=== PATIENT | male | born 1945 | race Caucasian/White ===

== ENCOUNTER 2017-09-16 15:04 | Emergency (ER) | payer MEDICARE, BC, OTHER ==
[2017-09-16 15:12] VITALS: BP 120/54
[2017-09-16] MEDS ORDERED: DOXYcycline CAP(*) 100 MG PO ONE (15:59)
--- NOTE | 2017-09-16 15:59 | UC ---
Skin Complaint HPI - HPI Summary HPI Summary: 72 y/o male presents to the urgent care c/o a tick bite on his Rt forearm about 2 days ago. He was out hunting deers and was carrying the deer when he noticed the tick in his forearm. Pt removed it. He now has redness. His told him to come to the clinic for treatment. Pt denies fever, joint pain, KENNEDY, chest pain , N/v/d, abdominal pain. - History of Current Complaint Chief Complaint: UCSkin Time Seen by Provider: 09/16/17 15:41 Stated Complaint: TICK BITE Hx Obtained From: Patient Onset/Duration: Sudden Onset, Lasting Days - 2 days, Still Present - the red rash, tick is gone Skin Exposure Onset/Duration: Days Ago - 2 days Timing: Constant Onset Severity: Mild Current Severity: Mild Pain Intensity: 0 Location: Discrete - Rt forearm Character: Redness Aggravating Factor(s): Touch Alleviating Factor(s): Nothing Associated Signs & Symptoms: Positive: Rash. Negative: Fever, Chills, Chest Pain Related History: Possible Reaction to: Insect - Allergy/Home Medications Allergies/Adverse Reactions: Allergies Allergy/AdvReac Type Severity Reaction Status Date / Time No Known Allergies Allergy Verified 09/16/17 15:12 Review of Systems Constitutional: Negative Skin: Other - RT forearm tick bite Eyes: Negative ENT: Negative Respiratory: Negative Cardiovascular: Negative Gastrointestinal: Negative Genitourinary: Negative Motor: Negative Neurovascular: Negative Musculoskeletal: Negative Neurological: Negative Psychological: Negative Is Patient Immunocompromised?: No All Other Systems Reviewed And Are Negative: Yes PMH/Surg Hx/FS Hx/Imm Hx Previously Healthy: Yes Endocrine History: Diabetes, Dyslipidemia Cardiovascular History: Cardiac Disease, Hypertension, Myocardial Infarction Other History Of: Anticoagulant Therapy - ASA Negative For: HIV, Hepatitis B, Hepatitis C - Surgical History Surgical History: Yes Surgery Procedure, Year, and Place: BASAL CELL ON NOSE 2010, hydrocele. CATARACTS [facility] [place]. RIGHT SHOULDER 2009 [facility] [place]. OPEN LAILA 84 [facility] [place]. APPY 2010 [facility] [place]. QUINTUPLE BYPASS FEBRUARY 2016, [facility]. SEVERAL BASAL CELL REMOVALS [facility]. VASECTOMY - Family History Known Family History: Positive: Cardiac Disease, Hypertension - Social History Occupation: Retired Lives: With Family Alcohol Use: Occasionally Alcohol Amount: 1/WEEK Substance Use Type: None Smoking Status (MU): Former Smoker Type: Cigarettes Amount Used/How Often: 1 PPD X 28 YEARS Length of Time of Smoking/Using Tobacco: 25+ YEARS Have You Smoked in the Last Year: No When Did the Patient Quit Smoking/Using Tobacco: 1983 - Immunization History Most Recent Influenza Vaccination: 2015 Most Recent Tetanus Shot: within ten years Most Recent Pneumonia Vaccination: 2013 Physical Exam Triage Information Reviewed: Yes Vital Signs: Initial Vital Signs Temp 96.4 F 09/16/17 15:08 Pulse 66 09/16/17 15:08 Resp 12 09/16/17 15:08 BP 120/54 09/16/17 15:08 Pulse Ox 99 09/16/17 15:08 - Additional Comments Vital Signs Reviewed: Yes General: well developed, well nourished male sitting in the examining table w/o any apparent distress. Eyes: Positive: Conjunctiva Clear - PERRLA, EOMI ENT: Positive: Normal ENT inspection, Hearing grossly normal, Pharynx normal, TMs normal Neck: Positive: Supple, Nontender, No Lymphadenopathy Respiratory: Positive: Chest nontender, Lungs clear, Normal breath sounds Cardiovascular: Positive: RRR, No Murmur, Pulses Normal Abdomen Description: Positive: Nontender, No Organomegaly, Soft. Negative: CVA Tenderness (R), CVA Tenderness (L) Bowel Sounds: Positive: Present Musculoskeletal: Positive: Strength Intact, ROM Intact, No Edema Neurological Exam: Normal Psychological Exam: Normal Skin: Positive: rashes - distal lateral aspect of RT forearm with tick bite with surrounding erythema, non tender to palpation. tick no longer present, no swelling or drainage observed. Course/Dx - Course Course Of Treatment: 72 y/o male presents to the urgent care c/o a tick bite on his Rt forearm about 2 days ago. He was out hunting deers and was carrying the deer when he noticed the tick in his forearm. Pt removed it. He now has redness. His told him to come to the clinic for treatment. Pt denies fever , joint pain, KENNEDY, chest pain, N/v/d, abdominal pain. Hx obtained. Pt with a discrete tick bite and mild erythema on examination. Antibiotic prophylaxis with Doxycycline given to the patient to prevent lyme Disease.. Pt tolerated well medication. Pt advised to observe the area for the development or Erythema Migrans for up to 30 days following exposure. Advised if he develops fever or erythema Migrans to return to the clinic or PCP for further treatment .Pt understood and agreed with plan of care. - Differential Diagnoses - Skin Complaint Differential Diagnoses: Cellulitis, Contact Dermatitis, Local Allergic Reaction , Tick Born Illness, Urticaria, Other - insect bite, bee sting - Diagnoses Provider Diagnoses: 1- Tick bite on Rt forearm Discharge - Discharge Plan Condition: Stable Disposition: HOME Patient Education Materials: Tick Bite (ED) Referrals: Bryant Borrego MD [Primary Care Provider] - If Needed Additional Instructions: 1- Please observe the area for the development or Erythema Migrans for upto 30 days following exposure. Components of the tick saliva can cause transient erythema that should not be confused with Erythema Migrans. If you developed the bull's eye rash or fever, joint pain, headache please f/u with your PCP of return to the urgent care for further treatment and Lyme serology 2-Antibiotic prophylaxis with Doxycycline was given to you today to prevent lyme Disease.
[2017-09-16] MEDS ORDERED: DOXYcycline CAP(*) 100 MG ONE (16:02)
== END 2017-09-16 16:08 | disposition home or self-care (01) ==
LOC: UCEAST 15:04
DX: S50.861A Insect bite (nonvenomous) of right forearm, initial encounter (principal); W57.XXXA Bitten or stung by nonvenomous insect and other nonvenomous arthropods, initial encounter; Y92.9 Unspecified place or not applicable
CPT/HCPCS: 99212; A9270-GY; G0463

== ENCOUNTER 2017-11-18 13:02 | Emergency (ER) | payer MEDICARE, BC, OTHER ==
[2017-11-18 14:37] VITALS: BP 112/64
--- NOTE | 2017-11-18 14:51 | UC ---
Back Pain HPI - HPI Summary HPI Summary: Pt presents with right sided back pain. He tells me that a few years ago he was doing housework and twisted toward his right - had immediate pain and saw his PCP. He was placed on a steroid and something else that he cannot remember - his discomfort improved within a few days. About a week ago he was helping his daughter work on the house - doing lots of lifting and bending. Woke up the next day with pain in this same spot. He has been taking flexeril at bedtime with little relief. Denies specific injury, fever, chills, SOB, chest pain, radiation of pain, weakness, numbness, or tingling. No bowel or bladder dysfunction. - History of Current Complaint Chief Complaint: UCBackPain Stated Complaint: BACK PAIN Time Seen by Provider: 11/18/17 14:50 Hx Obtained From: Patient Onset/Duration: Gradual Onset Timing: Constant Severity Initially: Moderate Severity Currently: Mild Pain Intensity: 1 Pain Scale Used: 0-10 Numeric Character: Spasmodic, Stiffness Aggravating Factor(s): Movement, Lifting Alleviating Factor(s): Rest - Allergies/Home Medications Allergies/Adverse Reactions: Allergies Allergy/AdvReac Type Severity Reaction Status Date / Time No Known Allergies Allergy Verified 11/18/17 14:24 Home Medications: Home Medications Furosemide TAB* [Lasix TAB*] 20 mg PO EVERY OTHER DAY 11/18/17 [History Confirmed 11/18/17] PMH/Surg Hx/FS Hx/Imm Hx Endocrine History: Diabetes Cardiovascular History: Cardiac Disease, Hypertension, Atrial Fibrillation GI/ History: Gastroesophageal Reflux Other History Of: Anticoagulant Therapy - ASA Negative For: HIV, Hepatitis B, Hepatitis C - Surgical History Surgical History: Yes Surgery Procedure, Year, and Place: BASAL CELL ON NOSE 2010, hydrocele. CATARACTS [facility] [place]. RIGHT SHOULDER 2009 [facility] [place]. OPEN [address]ILA [address] [facility] [place]. APPY 2010 [facility] [place]. QUINTUPLE BYPASS FEBRUARY 2016, [facility]. SEVERAL BASAL CELL REMOVALS [facility] [place]. VASECTOMY - Family History Known Family History: Positive: None, Cardiac Disease, Hypertension - Social History Occupation: Retired Lives: With Family Alcohol Use: Occasionally Alcohol Amount: 1/WEEK Substance Use Type: None Smoking Status (MU): Former Smoker Type: Cigarettes Amount Used/How Often: 1 PPD X 28 YEARS Length of Time of Smoking/Using Tobacco: 25+ YEARS Have You Smoked in the Last Year: No When Did the Patient Quit Smoking/Using Tobacco: 1983 - Immunization History Most Recent Influenza Vaccination: 2016 Most Recent Tetanus Shot: within ten years Most Recent Pneumonia Vaccination: 2014 Review of Systems Constitutional: Negative Skin: Negative Respiratory: Negative Cardiovascular: Negative Gastrointestinal: Negative Genitourinary: Negative Neurovascular: Negative Musculoskeletal: Other: - Back pain Neurological: Negative Psychological: Negative All Other Systems Reviewed And Are Negative: Yes Physical Exam Triage Information Reviewed: Yes Appearance: Well-Appearing, No Pain Distress, Well-Nourished Vital Signs: Initial Vital Signs Temp 97.4 F 11/18/17 14:30 Pulse 55 11/18/17 14:30 Resp 16 11/18/17 14:30 BP 112/64 11/18/17 14:30 Pulse Ox 98 11/18/17 14:30 Vital Signs Reviewed: Yes Neck: Positive: Supple, Nontender, No Lymphadenopathy Respiratory: Positive: Lungs clear, Normal breath sounds, No respiratory distress, No accessory muscle use Cardiovascular: Positive: Pulses Normal, Brisk Capillary Refill Musculoskeletal: Positive: Strength Intact - B/L LEs including dorsiflexion and plantar flexion, ROM Intact - B/L LEs, No Edema, Other: - TTP over right lumbar paraspinal muscles. Negative SLR. Negative FARNAZ. Neurological: Positive: Alert, Other: - Sensations intact L3-S1 b/l LEs Psychological: Positive: Age Appropriate Behavior Skin: Negative: rashes Back Pain Course/Dx - Course Course Of Treatment: Muscle spasm. Treated options are limited given his medications and other comorbidities. He tells me that he took a steroid in the past with good relief, so we can try this again along with a lidoderm patch prn. - Differential Dx/Diagnosis Provider Diagnoses: Back muscle spasm Discharge - Discharge Plan Condition: Stable Disposition: HOME Prescriptions: Dexamethasone TAB* [Decadron TAB*] 4 mg PO DAILY #5 tab Lidocaine PATCH 5%* [Lidoderm 5% Patch*] 1 patch TRANSDERM DAILY #7 patch Patient Education Materials: Muscle Spasm (ED) Referrals: Bryant Borrego MD [Primary Care Provider] - Additional Instructions: If you develop a fever, shortness of breath, chest pain, new or worsening symptoms - please call your PCP or go to the ED. 1) May take tylenol or your at home flexeril as needed for pain
== END 2017-11-18 15:15 | disposition home or self-care (01) ==
LOC: UCEAST 13:02
DX: M62.830 Muscle spasm of back (principal); E11.9 Type 2 diabetes mellitus without complications; I48.91 Unspecified atrial fibrillation; Z79.82 Long term (current) use of aspirin; I11.9 Hypertensive heart disease without heart failure; K21.9 Gastro-esophageal reflux disease without esophagitis; Z90.49 Acquired absence of other specified parts of digestive tract; Z95.5 Presence of coronary angioplasty implant and graft; Z98.49 Cataract extraction status, unspecified eye; Z85.828 Personal history of other malignant neoplasm of skin; Z87.891 Personal history of nicotine dependence
CPT/HCPCS: 99212; G0463

== ENCOUNTER 2017-12-13 10:15 | Emergency (ER) | payer MEDICARE, BC, OTHER ==
[2017-12-13 10:35] VITALS: BP 112/70
--- NOTE | 2017-12-13 10:52 | UC ---
Shoulder Pain HPI - HPI Summary HPI Summary: TRIPPED ON STONE SIDEWALK LAST NIGHT AROUND 10:30PM. LANDED ON RIGHT SHOULDER AND RIGHT KNEE. PT NOT CONCERNED ABOUT KNEE BUT HAS SEVERE RIGHT SHOULDER PAIN AND DECREASED ROM. TOOK TYLENOL LAST NIGHT WHICH HELPED A BIT. IS WEARING A SLING WHICH HELPS. PT ON COUMADIN FOR HEART DISEASE. STATES INR CHECK YESTERDAY WAS HIGH - 4.0. DENIES ANY UNUSUAL BLEEDING. - History of Current Complaint Chief Complaint: UCUpperExtremity Stated Complaint: shoulder injury Time Seen by Provider: 12/13/17 10:47 Hx Obtained From: Patient Onset/Duration: Sudden Onset, Lasting Hours, Still Present Timing: Constant Severity Initially: Moderate Severity Currently: Moderate Location Of Pain: Is Discrete @ - RIGHT SHOULDER Pain Intensity: 10 - WITH MOVEMENT Pain Scale Used: 0-10 Numeric Character: Sharp, Aching Aggravating Factor(s): Movement Alleviating Factor(s): Rest Associated Signs And Symptoms: Positive: Negative Related History: Dominant Hand Right - Allergies/Home Medications Allergies/Adverse Reactions: Allergies Allergy/AdvReac Type Severity Reaction Status Date / Time No Known Allergies Allergy Verified 12/13/17 10:27 PMH/Surg Hx/FS Hx/Imm Hx - Additional Past Medical History Additional PMH: ALLERGIES Endocrine History: Diabetes Cardiovascular History: Cardiac Disease, Hypertension Other Cancer History: SKIN CANCER Other History Of: Anticoagulant Therapy - ASA Negative For: HIV, Hepatitis B, Hepatitis C - Surgical History Surgical History: Yes Surgery Procedure, Year, and Place: BASAL CELL ON NOSE 2010, hydrocele. CATARACTS [facility]. RIGHT SHOULDER 2009 [facility] [place]. OPEN LAILA [address] [facility] [place]. APPY 2010 [facility]. QUINTUPLE BYPASS FEBRUARY 2016, [facility]. SEVERAL BASAL CELL REMOVALS [facility]. VASECTOMY - Family History Known Family History: Positive: Cardiac Disease, Hypertension - Social History Alcohol Use: Occasionally Alcohol Amount: 1/WEEK Substance Use Type: None Smoking Status (MU): Former Smoker Type: Cigarettes Amount Used/How Often: 1 PPD X 28 YEARS Length of Time of Smoking/Using Tobacco: 25+ YEARS Have You Smoked in the Last Year: No When Did the Patient Quit Smoking/Using Tobacco: 1983 - Immunization History Most Recent Influenza Vaccination: 2015 Most Recent Tetanus Shot: within ten years Most Recent Pneumonia Vaccination: 2013 Review of Systems Constitutional: Negative Skin: Negative Respiratory: Negative Cardiovascular: Negative Gastrointestinal: Negative Musculoskeletal: Arthralgia, Decreased ROM All Other Systems Reviewed And Are Negative: Yes Physical Exam Triage Information Reviewed: Yes Appearance: Well-Appearing, No Pain Distress, Well-Nourished Vital Signs: Initial Vital Signs Temp 96.9 F 12/13/17 10:28 Pulse 62 12/13/17 10:28 Resp 16 12/13/17 10:28 BP 112/70 12/13/17 10:28 Pulse Ox 98 12/13/17 10:28 Vital Signs Reviewed: Yes Eyes: Positive: Conjunctiva Clear ENT: Positive: Hearing grossly normal Neck: Positive: Supple Respiratory: Positive: No respiratory distress, No accessory muscle use Cardiovascular: Positive: Pulses Normal Abdomen Description: Positive: Soft Musculoskeletal: Positive: No Edema, ROM Limited @ - RIGHT SHOULDER, Other: - TTP RIGHT RIGHT AC JOINT. POSITIVE CROSS ARM TEST. Neurological: Positive: Alert Psychological: Positive: Age Appropriate Behavior Skin: Negative: rashes Diagnostics - Radiology AC JOINT XRAYS Xray Interpretation: Positive (See Comments) - 1. BILATERAL AC JOINT OSTEOARTHRITIS. 2. QUESTIONABLE NONDISPLACED FRACTURE OF THE LATERAL RIGHT CLAVICLE, GIVEN THE HISTORY OF TRAUMA. RECOMMEND CORRELATION WITH SITE OF PAIN. Radiology Interpretation Completed By: Radiologist Shoulder Course/Dx - Differential Dx/Diagnosis Provider Diagnoses: RIGHT CLAVICLE FRACTURE - NON DISPLACED Discharge - Discharge Plan Condition: Stable Disposition: HOME Prescriptions: HYDROcodone/ACETAMIN 5-325 MG* [[place] 5-325 TAB*] 1 tab PO Q6H PRN #20 tab MDD 4 PRN Reason: Pain Patient Education Materials: Clavicle Fracture (ED) Referrals: Bryant Borrego MD [Primary Care Provider] - If Needed Cirilo Becerra MD [Medical Doctor] - 1 Week Additional Instructions: XRAY SHOWED QUESTIONABLE NONDISPLACED FRACTURE OF THE LATERAL RIGHT CLAVICLE. WEAR THE SLING UNTIL SEEN BY ORTHO. HYDROCODONE/APAP FOR PAIN. FOLLOW-UP WITH ORTHO NEXT WEEK. BE VIGILANT FOR ANY SIGNS OF BLEEDING GIVEN YOUR SUPRATHERAPEUTIC INR. GO TO THE ER WITHOUT FAIL IF YOU DEVELOP ANY WORSENING SWELLING, BRUISING, PAIN, NUMBNESS, DIZZINESS, SHORTNESS OF BREATH OR ANY OTHER CONCERNING SYMPTOMS.
--- NOTE | 2017-12-13 11:26 | RAD ---
HISTORY: Right shoulder pain, trauma COMPARISONS: Chest x-ray dated December 12, 2017 VIEWS: 5, frontal views of the acromioclavicular joints bilaterally with and without weightbearing FINDINGS: BONE DENSITY: Normal. BONES: There is post surgical change to the right proximal humerus . There is questionable linear lucency of the distal (lateral) views right clavicle. JOINTS: There is moderate osteoarthritis of the AC joints bilaterally. There is no diastases of the a.c. or coracoclavicular intervals with a without weightbearing. . ALIGNMENT: There is no dislocation. SOFT TISSUES: Unremarkable. OTHER FINDINGS: None. IMPRESSION: 1. BILATERAL AC JOINT OSTEOARTHRITIS. 2. QUESTIONABLE NONDISPLACED FRACTURE OF THE LATERAL RIGHT CLAVICLE, GIVEN THE HISTORY OF TRAUMA. RECOMMEND CORRELATION WITH SITE OF PAIN.
== END 2017-12-13 11:58 | disposition home or self-care (01) ==
LOC: UCEAST 10:15
DX: S42.034A Nondisplaced fracture of lateral end of right clavicle, initial encounter for closed fracture (principal); W01.0XXA Fall on same level from slipping, tripping and stumbling without subsequent striking against object, initial encounter; Y93.01 Activity, walking, marching and hiking; Y92.480 Sidewalk as the place of occurrence of the external cause; M19.012 Primary osteoarthritis, left shoulder; M19.011 Primary osteoarthritis, right shoulder; E11.9 Type 2 diabetes mellitus without complications; Z79.84 Long term (current) use of oral hypoglycemic drugs; I11.9 Hypertensive heart disease without heart failure; Z79.82 Long term (current) use of aspirin; Z85.828 Personal history of other malignant neoplasm of skin; Z95.1 Presence of aortocoronary bypass graft; Z87.891 Personal history of nicotine dependence
CPT/HCPCS: 73050; 99212; G0463

== ENCOUNTER 2018-05-28 12:14 | Emergency (ER) | payer MEDICARE, BC, OTHER ==
[2018-05-28 12:57] VITALS: BP 131/78
--- NOTE | 2018-05-28 13:07 | UC ---
Abdominal Pain Male HPI - HPI Summary HPI Summary: no bowel movement for 2 and 1/2 weeks---patient is vomiting abdomen is distended - History of Current Complaint Chief Complaint: UCAbdominalPain Stated Complaint: ABDOMINAL COMPLAINT Time Seen by Provider: 05/28/18 13:02 Hx Obtained From: Patient Onset/Duration: Sudden Onset Timing: Constant Pain Intensity: 7 Pain Scale Used: 0-10 Numeric Location: Diffuse Radiates: No Character: Colicy, Cramping Aggravating Factor(s): Nothing Alleviating Factor(s): Nothing Associated Signs And Symptoms: Positive: Decreased Appetite, Nausea, Vomiting - Allergies/Home Medications Allergies/Adverse Reactions: Allergies Allergy/AdvReac Type Severity Reaction Status Date / Time No Known Allergies Allergy Verified 05/28/18 12:57 PMH/Surg Hx/FS Hx/Imm Hx Previously Healthy: No Endocrine History: Diabetes, Dyslipidemia Cardiovascular History: Cardiac Disease, Hypertension Other History Of: Anticoagulant Therapy - ASA Negative For: HIV, Hepatitis B, Hepatitis C - Surgical History Surgical History: Yes Surgery Procedure, Year, and Place: BASAL CELL ON NOSE 2010, hydrocele. CATARACTS [facility] [place]. RIGHT SHOULDER 2009 [facility] [place]. OPEN [address] [facility]. APPY 2010 [facility]. QUINTUPLE BYPASS FEBRUARY 2016, [facility]. SEVERAL BASAL CELL REMOVALS [facility]. VASECTOMY - Family History Known Family History: Positive: Cardiac Disease, Hypertension - Social History Occupation: Retired Lives: With Family Alcohol Use: Occasionally Alcohol Amount: 1/WEEK Substance Use Type: None Smoking Status (MU): Former Smoker Type: Cigarettes Amount Used/How Often: 1 PPD X 28 YEARS Length of Time of Smoking/Using Tobacco: 25+ YEARS Have You Smoked in the Last Year: No When Did the Patient Quit Smoking/Using Tobacco: 1983 - Immunization History Most Recent Influenza Vaccination: 2016 Most Recent Tetanus Shot: within ten years Most Recent Pneumonia Vaccination: 2014 Review of Systems Constitutional: Negative Skin: Negative Eyes: Negative ENT: Negative Respiratory: Negative Cardiovascular: Negative Gastrointestinal: Negative, Abdominal Pain, Vomiting Genitourinary: Negative Motor: Negative Neurovascular: Negative Musculoskeletal: Negative Neurological: Negative Psychological: Negative Is Patient Immunocompromised?: No All Other Systems Reviewed And Are Negative: Yes Physical Exam Triage Information Reviewed: Yes Appearance: Well-Appearing, No Pain Distress, Well-Nourished Vital Signs: Initial Vital Signs Temp 97.6 F 05/28/18 12:50 Pulse 63 05/28/18 12:50 Resp 18 05/28/18 12:50 BP 131/78 05/28/18 12:50 Pulse Ox 99 05/28/18 12:50 Vital Signs Reviewed: Yes Eye Exam: Normal Eyes: Positive: Conjunctiva Clear ENT Exam: Normal ENT: Positive: Normal ENT inspection, Hearing grossly normal. Negative: Trismus , Muffled voice, Hoarse voice Dental Exam: Normal Neck exam: Normal Neck: Positive: Supple, Nontender Respiratory Exam: Normal Respiratory: Positive: Chest non-tender, Lungs clear, Normal breath sounds, No respiratory distress, No accessory muscle use Cardiovascular Exam: Normal Cardiovascular: Positive: RRR, No Murmur, Pulses Normal, Brisk Capillary Refill Abdominal Exam: Normal Abdomen Description: Positive: Distended. Negative: CVA Tenderness (R), CVA Tenderness (L), Guarding, McBurney's Point Tenderness, Peritoneal Signs, Pulsatile Mass Bowel Sounds: Positive: Present Musculoskeletal Exam: Normal Musculoskeletal: Positive: Strength Intact, ROM Intact, No Edema Neurological Exam: Normal Neurological: Positive: Alert, Muscle Tone Normal Psychological Exam: Normal Psychological: Positive: Normal Response To Family Skin Exam: Normal Abd Pain Male Course/Dx - Course Course Of Treatment: npo, to [place]ial by private car - Differential Dx/Clinical Impression Provider Diagnoses: bowel obstruction Discharge - Sign-Out/Discharge Documenting (check all that apply): Patient Departure - Discharge Plan Condition: Stable Disposition: HOME-RECOMMEND TO ED Patient Education Materials: Bowel Obstruction (ED) Referrals: Bryant Borrego MD [Primary Care Provider] - Additional Instructions: Please go directly to the emergency department---nothing to eat or drink until you are evaluated by a emergency department provider - Billing Disposition and Condition Condition: STABLE Disposition: Home-Recommend to ED
== END 2018-05-28 13:14 | disposition home health service (06) ==
LOC: UCEAST 12:14
DX: K56.609 Unspecified intestinal obstruction, unspecified as to partial versus complete obstruction (principal); R11.2 Nausea with vomiting, unspecified; Z79.82 Long term (current) use of aspirin; Z95.1 Presence of aortocoronary bypass graft; Z87.891 Personal history of nicotine dependence
CPT/HCPCS: 99212; G0463

== ENCOUNTER 2018-05-28 13:37 | Emergency (ER) | payer MEDICARE, BC, OTHER ==
[2018-05-28] MEDS ORDERED: Ondansetron INJ* 2 MG/ML VIAL IV ONE (14:12)
[2018-05-28 14:29] LABS: ABS Basophils 0 10^3/ul (0-0.2); ABS Eosinophils 0.1 10^3/ul (0-0.6); ABS Lymphocytes 0.7 10^3/ul (1.0-4.8); ABS Monocytes 0.5 10^3/ul (0-0.8); ABS Neutrophils 6.3 10^3/ul (1.5-7.7); ABS Nucleated RBC 0 10^3/ul; Eosinophil % 0.9 % (0-6); Hematocrit 41 % (42-52); Hemoglobin 14.1 g/dl (14.0-18.0); Lymphocyte % 9.2 % (25-47); Mean Corpuscular HGB Conc 34 g/dl (31-36); Mean Corpuscular Hemoglobin 31 pg (27-31); Mean Corpuscular Volume 91 fL (80-94); Mean Platelet Volume 8.9 um3 (7.4-10.4); Nucleated Red Blood Cells % 0.1; Platelet Count 181 10^3/ul (150-450); Red Blood Count 4.53 10^6/ul (4.00-5.40); Red Cell Distribution Width 15 % (10.5-15); White Blood Count 7.5 10^3/ul (3.5-10.8)
[2018-05-28] MEDS ORDERED: Morphine VIAL* 10 MG/ML 1 ML VIAL IV ONE (14:38)
[2018-05-28] MEDS ORDERED: Iodixanol* (CONTRAST) 320 MG/ML 100 ML SDV IV ONE (14:45)
--- NOTE | 2018-05-28 17:04 | ED ---
Abdominal Pain/Male - HPI Summary HPI Summary: This is scribe John Salazar documenting for attending Julio Dixon M.D. Patient is a 72 y/o M w/ c/o of diffuse abdominal pain onsetting 2.5 weeks ago. He also claims last bowel movement was 2.5 weeks ago as well. He has been taking miralax w/ no relief of Sx. He was seen at [facility] today and sent here. On triage, pain is rated 7/10, but he notes it waxes and wanes in intensity, with worst being 10/10. Pain is constant. Patient reports N/V onset this morning. He reports 5 episodes of vomiting today. PSHx of cholecystectomy is noted. Nothing is noted to aggravate/alleviate Sx in the room. Home medications and allergies are reviewed. I, Dr. Dixon, personally performed the services described in this documentation as scribed in my presence and it is both accurate and complete. - History of Current Complaint Chief Complaint: EDAbdPain Stated Complaint: ABD PAIN-SENT F/CC Time Seen by Provider: 05/28/18 13:51 Hx Obtained From: Patient Onset/Duration: Lasting Hours - onset N/V this morning, Lasting Weeks - 2.5 weeks of abdominal pain; last bowel movement reported to be 2.5 weeks ago as well, Still Present - all Sx Timing: Constant, Lasting Hours - N/V, Lasting Weeks - constipation, abdominal pain Severity Currently: Severe - 7/10, pain is noted to wax and wane in intensity Pain Intensity: 7 Pain Scale Used: 0-10 Numeric - 7/10 Location: Diffuse Aggravating Factor(s): Nothing Alleviating Factor(s): Nothing Associated Signs And Symptoms: Positive: Constipation, Nausea, Vomiting - Allergies/Home Medications Allergies/Adverse Reactions: Allergies Allergy/AdvReac Type Severity Reaction Status Date / Time No Known Allergies Allergy Verified 05/31/18 01:10 Home Medications: Home Medications Atorvastatin* [Lipitor*] 20 mg PO DAILY 05/28/18 [History Confirmed 05/28/18] Azelastine HCl [Azelastine Hydrochloride] 0.1 % BOTH NARES BID 05/28/18 [ History Confirmed 05/28/18] Ipratropium Br (Nf)0.03% Nasal [Ipratropium [place]] 0.06 % BOTH NARES TID 05/28 [History Confirmed 05/28/18] Meclizine TAB* [Antivert 12.5 TAB*] 25 mg PO TID PRN 05/28/18 [History Confirmed 05/28/18] Jefferson-3 Fatty Acids [Jefferson-3] 1,000 mg PO DAILY 05/28/18 [History Confirmed ] Polyethylene Glycol 3350* [Miralax*] 17 gm PO DAILY PRN 05/28/18 [History Confirmed 05/28/18] Warfarin TAB(*) [Coumadin TAB(*)] 7.5 mg PO MOFR 05/28/18 [History Confirmed ] PMH/Surg Hx/FS Hx/Imm Hx Endocrine/Hematology History: Reports: Hx Anticoagulant Therapy - ASA, Hx Diabetes - borderline Denies: Hx Blood Disorders, Hx Blood Transfusions, Hx Bone Marrow Disease, Hx Systemic Lupus Erythematosus, Hx Sickle Cell Disease, Hx Thyroid Disease, Hx Anemia, Hx Unexplained Bleeding, Other Endocrine/Hematological Disorders Cardiovascular History: Reports: Hx Coronary Artery Disease, Hx Hypercholesterolemia, Hx Hypertension, Hx Pacemaker/ICD, Other Cardiovascular Problems/Disorders - ICD Denies: Hx Congestive Heart Failure, Hx Deep Vein Thrombosis, Hx Embolism, Hx Myocardial Infarction, Hx Peripheral Vascular Disease Respiratory History: Denies: Hx Asthma, Hx Chronic Obstructive Pulmonary Disease (COPD), Hx Lung Cancer, Hx Pneumonia, Hx Pulmonary Embolism GI History: Denies: Hx Gall Bladder Disease, Hx Gastrointestinal Bleed, Hx Ulcer, Hx Urosepsis History: Denies: Hx Kidney Stones, Hx Renal Disease Musculoskeletal History: Reports: Hx Back Problems - tightness-chronic, 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 "there from ", Hx Orthopedic Injury - Right foot fracture Denies: Hx Bursitis, Hx Fibromyalgia, Hx Gout, Hx Osteoporosis, Hx Scoliosis , Hx Tendonitis, Other Musculoskeletal History Sensory History: Reports: Hx Cataracts - removed, Hx Contacts or Glasses - glasses Denies: Hx Hearing Aid, Other Sensory Impairments Opthamlomology History: Reports: Hx Cataracts - removed, Hx Contacts or Glasses - glasses Denies: Other Sensory Impairments Neurological History: Denies: Hx Dementia, Hx Developmental Delay, Hx Migraine, Hx Seizures, Hx Transient Ischemic Attacks (TIA) Comment Only: Other Neuro Impairments/Disorders - 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 CATARACTS [facility]. RIGHT SHOULDER 2009 [facility]. OPEN LAILA [facility]. APPY 2010 [facility]. QUINTUPLE BYPASS FEBRUARY 2016, [facility]. SEVERAL BASAL CELL REMOVALS [facility]. VASECTOMY Hx Anesthesia Reactions: No Infectious Disease History: No Infectious Disease History: Denies: Hx Hepatitis, Hx Human Immunodeficiency Virus (HIV), History Other Infectious Disease, Traveled Outside the [place] in Last 30 Days - Family History Known Family History: Positive: Cardiac Disease, Hypertension - Social History Alcohol Use: Occasionally Alcohol Amount: 1/WEEK Substance Use Type: Reports: None Hx Tobacco Use: No Smoking Status (MU): Former Smoker Type: Cigarettes Amount Used/How Often: 1 PPD X 28 YEARS Length of Time of Smoking/Using Tobacco: 25+ YEARS Have You Smoked in the Last Year: No Review of Systems Negative: Fever, Chills Negative: Erythema Negative: Sore Throat Negative: Chest Pain Negative: Shortness Of Breath, Cough Positive: Abdominal Pain - diffuse, Vomiting, Nausea, Other - constipation Negative: dysuria, hematuria Negative: Myalgia, Edema Negative: Rash Neurological: Other - NEGATIVE: dizziness All Other Systems Reviewed And Are Negative: Yes Physical Exam - Summary Physical Exam Summary: Constitutional: Well-developed, Well-nourished, Alert. (-) Distressed Skin: Warm, Dry HENT: Normocephalic; Atraumatic Eyes: Conjunctiva normal Neck: Musculoskeletal ROM normal neck. (-) JVD, (-) Stridor, (-) Tracheal deviation Cardio: Rhythm regular, rate normal, Heart sounds normal; Intact distal pulses; The pedal pulses are 2+ and symmetric. Radial pulses are 2+ and symmetric. (-) Murmur Pulmonary/Chest wall: Effort normal. (-) Respiratory distress, (-) Wheezes, (-) Rales Abd: Soft, (+) diffuse tenderness, (+) Distension, (-) Guarding, (-) Rebound. Normal bowel sounds present. Musculoskeletal: (-) Edema Lymph: (-) Cervical adenopathy Neuro: Alert, Oriented x3 Psych: Mood and affect Normal Triage Information Reviewed: Yes Vital Signs On Initial Exam: Initial Vitals Temp Pulse Resp BP Pulse Ox 97.3 F 63 16 109/69 97 05/28/18 13:41 05/28/18 13:41 05/28/18 13:41 05/28/18 13:41 05/28/18 13:41 Vital Signs Reviewed: Yes Diagnostics - Vital Signs Vital Signs Temp Pulse Resp BP Pulse Ox 05/28/18 15:00 17 05/28/18 13:41 97.3 F 63 16 109/69 97 - Laboratory Lab Results: Lab Results 05/28/18 05/28/18 05/28/18 Range/Units 14:09 14:09 14:09 WBC 7.5 (3.5-10.8) 10^3/ul RBC 4.53 (4.00-5.40) 10^6/ul Hgb 14.1 (14.0-18.0) g/dl Hct 41 L (42-52) % MCV 91 (80-94) fL MCH 31 (27-31) pg MCHC 34 (31-36) g/dl RDW 15 (10.5-15) % Plt Count 181 (150-450) 10^3/ul MPV 8.9 (7.4-10.4) um3 Neut % (Auto) 83.4 H (38-83) % Lymph % (Auto) 9.2 L (25-47) % Gaines % (Auto) 6.1 (0-7) % Eos % (Auto) 0.9 (0-6) % Baso % (Auto) 0.4 (0-2) % Absolute Neuts (auto) 6.3 (1.5-7.7) 10^3/ul Absolute Lymphs (auto) 0.7 L (1.0-4.8) 10^3/ul Absolute Monos (auto) 0.5 (0-0.8) 10^3/ul Absolute Eos (auto) 0.1 (0-0.6) 10^3/ul Absolute Basos (auto) 0 (0-0.2) 10^3/ul Absolute Nucleated RBC 0 10^3/ul Nucleated RBC % 0.1 Sodium 137 (135-145) mmol/L Potassium 4.9 (3.5-5.0) mmol/L Chloride 104 (101-111) mmol/L Carbon Dioxide 26 (22-32) mmol/L Anion Gap 7 (2-11) mmol/L BUN 25 H (6-24) mg/dL Creatinine 1.44 H (0.67-1.17) mg/dL Est GFR ( Amer) 58.0 (>60) Est GFR (Non-Af Amer) 48.0 (>60) BUN/Creatinine Ratio 17.4 (8-20) Glucose 156 H (70-100) mg/dL Lactic Acid 1.2 (0.5-2.0) mmol/L Calcium 9.4 (8.6-10.3) mg/dL Total Bilirubin 1.00 (0.2-1.0) mg/dL AST 45 H (13-39) U/L ALT 46 (7-52) U/L Alkaline Phosphatase 63 (34-104) U/L C-Reactive Protein 54.74 H (<8.01) mg/L Total Protein 7.0 (6.4-8.9) g/dL Albumin 4.0 (3.2-5.2) g/dL Globulin 3.0 (2-4) g/dL Albumin/Globulin Ratio 1.3 (1-3) Lipase 24 (11.0-82.0) U/L Result Diagrams: 05/28/18 14:09 05/28/18 14:09 Lab Statement: Any lab studies that have been ordered have been reviewed, and results considered in the medical decision making process. Re-Evaluation - Re-Evaluation First Eval Re-Evaluation Time: 18:41 Comment: Patient reports after meralax he was experiencing epigastric pain. He will get GI cocktail. Patient is not vomiting. Abdominal Pain Fem Course/Dx - Course Course Of Treatment: Patient is a 72 y/o M w/ c/o of diffuse abdominal pain onsetting 2.5 weeks ago. He also claims last bowel movement was 2.5 weeks ago as well. He has been taking miralax w/ no relief of Sx. He was seen at [facility] today and sent here. On triage, pain is rated 7/10, but he notes it waxes and wanes in intensity, with worst being 10/10. Pain is constant. Patient reports N/V onset this morning. He reports 5 episodes of vomiting today. PSHx of cholecystectomy is noted. During ED course, patient was given Maalox Plus 30 ml PO ED ONCE ONE, Xylocaine 2% Viscous 15 mL PO ED ONCE ONE, Morphine Vial 5 mg IV ED ONCE ONE, Zofran 4 mg IV ED ONCE ONE, Miralax 17 gm PO ONCE ONE. Labs showed 41, Neut % 83.4, CRP 54.74, AST 45, BUN 25, creatinine 1.44. UA had ascorbic acid. CT abd/pel impressions noted above. On re -eval at 1841, patient reports after meralax he was experiencing epigastric pain. He will get GI cocktail. Patient is not vomiting. Patient will be signed out to Dr. Figueroa at 1900 for continued care. - Diagnoses Provider Diagnoses: GERD (gastroesophageal reflux disease) Discharge - Sign-Out/Discharge Documenting (check all that apply): Sign-Out Patient Signing out patient TO: Felicita Figueroa Receiving patient FROM: Julio Dixon - Discharge Plan Condition: Stable Disposition: HOME Prescriptions: Pantoprazole TAB (NF) [Protonix TAB (NF)] 40 mg PO DAILY #30 tab Patient Education Materials: Gastroesophageal Reflux Disease (ED) Referrals: Bryant Borrego MD [Primary Care Provider] - 2 Days Additional Instructions: Return to the emergency department for any changing or worsening symptoms. Follow up with your primary care physician in 1-2 days. - Billing Disposition and Condition Condition: STABLE Disposition: Home
--- NOTE | 2018-05-28 17:10 | RAD ---
INDICATION: Vomiting. Constipation. Evaluate for small bowel obstruction COMPARISON: None TECHNIQUE: Axial source images were obtained from the hemidiaphragms to the symphysis pubis following administration of oral and intravenous contrast. 115 mL Visipaque 320 was utilized. Coronal and sagittal reconstructed images were acquired. Lung bases: The lung bases are clear. There is cardiac pacemaker artifact. There is prior sternotomy Liver: The liver is normal in size. There are no masses. There is no ductal dilatation. Gallbladder: Cholecystectomy. Spleen: The spleen is normal in size. There are no masses. Pancreas: There is no focal pancreatic mass or ductal dilatation. Adrenal glands: There is no evidence of adrenal mass. Kidneys: The kidneys are normal in size and position. There are prompt nephrograms and there is prompt excretion bilaterally. There are no renal parenchymal masses. There is no evidence of nephrolithiasis. Adenopathy: There is no evidence of adenopathy by size criteria. Fluid collections: There are no free or localized fluid collections. Vessels:There are no significant atherosclerotic changes involving the aorta. There is no focal aneurysm. The iliac vessels are normal in caliber. The IVC appears normal. GI tract: There are no acute CT bowel findings. There is no obstruction. The stomach and small bowel appear normal. There is moderate stool in the lower GI tract with mild gaseous distention.. The cecum, ileocecal valve, and terminal ileum appear normal. There is no obstruction. Pelvic organs: The prostate and seminal vesicles appear normal Bladder: There are no bladder masses. Abdominal and pelvic soft tissues: The extraperitoneal abdominal and pelvic soft tissues appear normal.. Osseous structures: There are no acute osseous findings. Other: None IMPRESSION: NO ACUTE CT FINDINGS. NO BOWEL OBSTRUCTION. MODERATE STOOL WITHIN THE COLON
[2018-05-28] MEDS ORDERED: Polyethylene Glycol 3350* 17 GM PACKET PO ONE (17:33)
[2018-05-28 17:51] LABS: Urine Appearance Clear; Urine Blood Negative (Negative); Urine Color Yellow; Urine Ketones Negative (Negative); Urine Protein Negative (Negative); Urine Specific Gravity 1.046 (1.010-1.030); Urine Urobilinogen Negative (Negative)
[2018-05-28] MEDS ORDERED: Lidocaine 2% VISCOUS* 15 ML UDC PO ONE (18:42)
[2018-05-28] MEDS ORDERED: Al Hydrox/Mg Hydrox/Simet LIQ* 30 ML UDC PO ONE (18:42)
--- NOTE | 2018-05-28 19:07 | ED ---
Re-Evaluation - Re-Evaluation First Eval Re-Evaluation Time: 18:41 Comment: Patient reports after meralax he was experiencing epigastric pain. He will get GI cocktail. Patient is not vomiting. Second Eval Re-Evaluation Time: 20:51 Change: Improved Comment: Pt feels fine, agreeable to discharge. Course/Dx - Diagnoses Provider Diagnoses: GERD (gastroesophageal reflux disease) Discharge - Sign-Out/Discharge Documenting (check all that apply): Patient Departure - discharge, Receiving Sign-Out Receiving patient FROM: Julio Dixon - pain control - Discharge Plan Condition: Stable Disposition: HOME Prescriptions: Pantoprazole TAB (NF) [Protonix TAB (NF)] 40 mg PO DAILY #30 tab Patient Education Materials: Gastroesophageal Reflux Disease (ED) Referrals: Bryant Borrego MD [Primary Care Provider] - 2 Days Additional Instructions: Return to the emergency department for any changing or worsening symptoms. Follow up with your primary care physician in 1-2 days. - Billing Disposition and Condition Condition: STABLE Disposition: Home Attestation Statement User Type: Provider - I, Dr. Figueroa personally performed the services described in this documentation as scribed in my presence and it is both accurate and complete.
[2018-05-28 21:23] VITALS: BP 129/67
== END 2018-05-28 21:22 | disposition home or self-care (01) ==
LOC: ED 13:37
DX: R10.13 Epigastric pain (principal); R11.2 Nausea with vomiting, unspecified; I25.10 Atherosclerotic heart disease of native coronary artery without angina pectoris; Z90.49 Acquired absence of other specified parts of digestive tract; Z79.01 Long term (current) use of anticoagulants; Z87.891 Personal history of nicotine dependence; K56.609 Unspecified intestinal obstruction, unspecified as to partial versus complete obstruction; Z79.82 Long term (current) use of aspirin; Z95.1 Presence of aortocoronary bypass graft
CPT/HCPCS: 36415; 74177; 80053; 81003; 83605; 83690; 85025; 86140; 96374; 96375; 99283; A9270-GY; J2270; J2405; Q9967

== ENCOUNTER → 2018-05-31 00:59 | Emergency (ER) | payer MEDICARE, BC, OTHER ==
[~2018-05-31 00:59] MED LIST: Norepinephrine 16MCG/ML IVPRE* 4,000 MCG/250 ML BAG IV ONE; Norepinephrine 16MCG/ML IVPRE* 4,000 MCG/250 ML BAG IV SCH
[2018-05-31 01:59] LABS: ABS Basophils 0 10^3/ul (0-0.2); ABS Eosinophils 0 10^3/ul (0-0.6); ABS Lymphocytes 0.1 10^3/ul (1.0-4.8); ABS Monocytes 0 10^3/ul (0-0.8); ABS Neutrophils 4.1 10^3/ul (1.5-7.7); ABS Nucleated RBC 0 10^3/ul; Eosinophil % 0.4 % (0-6); Hematocrit 40 % (42-52); Hemoglobin 13.4 g/dl (14.0-18.0); Lymphocyte % 2.8 % (25-47); Mean Corpuscular HGB Conc 34 g/dl (31-36); Mean Corpuscular Hemoglobin 31 pg (27-31); Mean Corpuscular Volume 91 fL (80-94); Mean Platelet Volume 8.5 um3 (7.4-10.4); Nucleated Red Blood Cells % 0.1; Platelet Count 144 10^3/ul (150-450); Red Blood Count 4.33 10^6/ul (4.00-5.40); Red Cell Distribution Width 14 % (10.5-15); White Blood Count 4.3 10^3/ul (3.5-10.8)
[2018-05-31 02:14] LABS: EGFR Non-African American 30.2 (>60)
--- NOTE | 2018-05-31 02:34 | ED ---
Abdominal Pain/Male - HPI Summary HPI Summary: This patient is a 72 year old M presenting to [facility] accompanied by with a chief complaint of epigastric abd pain that began 05/28/2018. The patient rates the pain 10/10 in severity. Symptoms aggravated by nothing. Symptoms alleviated by nothing. Patient reports dark urine and vomiting. Patient denies CP. Patient reports that he was seen at [facility] on 05/28/2018, and was diagnosed with constipation. - History of Current Complaint Chief Complaint: EDAbdPain Stated Complaint: ABD PAIN Hx Obtained From: Patient Onset/Duration: Sudden Onset, Lasting Days, Still Present Timing: Constant, Lasting Days Severity Initially: Severe Severity Currently: Severe Pain Intensity: 10 Pain Scale Used: 0-10 Numeric Location: Epigastric Radiates: No Aggravating Factor(s): Nothing Alleviating Factor(s): Nothing - Allergies/Home Medications Allergies/Adverse Reactions: Allergies Allergy/AdvReac Type Severity Reaction Status Date / Time No Known Allergies Allergy Verified 05/31/18 01:10 PMH/Surg Hx/FS Hx/Imm Hx Previously Healthy: No Endocrine/Hematology History: Reports: Hx Anticoagulant Therapy - ASA, Hx Diabetes - borderline Denies: Hx Blood Disorders, Hx Blood Transfusions, Hx Bone Marrow Disease, Hx Systemic Lupus Erythematosus, Hx Sickle Cell Disease, Hx Thyroid Disease, Hx Anemia, Hx Unexplained Bleeding, Other Endocrine/Hematological Disorders Cardiovascular History: Reports: Hx Coronary Artery Disease, Hx Hypercholesterolemia, Hx Hypertension, Hx Pacemaker/ICD, Other Cardiovascular Problems/Disorders - ICD Denies: Hx Congestive Heart Failure, Hx Deep Vein Thrombosis, Hx Embolism, Hx Myocardial Infarction, Hx Peripheral Vascular Disease Respiratory History: Denies: Hx Asthma, Hx Chronic Obstructive Pulmonary Disease (COPD), Hx Lung Cancer, Hx Pneumonia, Hx Pulmonary Embolism GI History: Denies: Hx Gall Bladder Disease, Hx Gastrointestinal Bleed, Hx Ulcer, Hx Urosepsis History: Denies: Hx Kidney Stones, Hx Renal Disease Musculoskeletal History: Reports: Hx Back Problems - tightness-chronic, 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 "there from ", Hx Orthopedic Injury - Right foot fracture Denies: Hx Bursitis, Hx Fibromyalgia, Hx Gout, Hx Osteoporosis, Hx Scoliosis , Hx Tendonitis, Other Musculoskeletal History Sensory History: Reports: Hx Cataracts - removed, Hx Contacts or Glasses - glasses Denies: Hx Hearing Aid, Other Sensory Impairments Opthamlomology History: Reports: Hx Cataracts - removed, Hx Contacts or Glasses - glasses Denies: Other Sensory Impairments Neurological History: Denies: Hx Dementia, Hx Developmental Delay, Hx Migraine, Hx Seizures, Hx Transient Ischemic Attacks (TIA) Comment Only: Other Neuro Impairments/Disorders - 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 [facility]ARACTS [facility]. RIGHT SHOULDER 2009 [facility]. OPEN LAILA [facility]. APPY 2010 [facility]. QUINTUPLE BYPASS FEBRUARY 2016, [facility]. SEVERAL BASAL CELL REMOVALS [facility]. VASECTOMY Hx Anesthesia Reactions: No Infectious Disease History: No Infectious Disease History: Denies: Hx Hepatitis, Hx Human Immunodeficiency Virus (HIV), History Other Infectious Disease, Traveled Outside the [place] in Last 30 Days - Family History Known Family History: Positive: Cardiac Disease, Hypertension - Social History Occupation: Retired Lives: With Family Alcohol Use: Weekly Alcohol Amount: 1/WEEK Hx Substance Use: No Substance Use Type: Reports: None Hx Tobacco Use: Yes Smoking Status (MU): Former Smoker Type: Cigarettes Amount Used/How Often: 1 PPD X 28 YEARS Length of Time of Smoking/Using Tobacco: 25+ YEARS Have You Smoked in the Last Year: No Review of Systems - ROS Summary Review of Systems Summary: ROS limited due to pain. Negative: Chest Pain Positive: Abdominal Pain, Vomiting Genitourinary: Other - Positive dark urine All Other Systems Reviewed And Are Negative: No Physical Exam - Summary Physical Exam Summary: Appearance: Alert, conversive, jaundiced Skin: Warm, dry, no mottling, no rashes, no contusions HEENT: EOMI, PERRL, moist mucous membranes Neck: No masses on the neck, supple Respiratory: Clear to auscultation, breath sounds present, no rales, no rhonchi , no wheezes Cardiovascular: RRR, pulses are symmetrical in both lower and upper extremities Abdomen: Soft, diffuse abd tenderness Bowel Sounds: Present Musculoskeletal: No CVA tenderness, no obvious deformity, moving all extremities in a grossly normal manner Neurological: A&Ox3, CN II-XII Intact, moving all extremities symmetrically Psychiatric: Normal affect and mood Triage Information Reviewed: Yes Vital Signs On Initial Exam: Initial Vitals Temp Pulse Resp BP Pulse Ox 97.6 F 68 20 78/48 96 05/31/18 01:00 05/31/18 01:00 05/31/18 01:00 05/31/18 01:00 05/31/18 01:00 Vital Signs Reviewed: Yes Diagnostics - Vital Signs Vital Signs Temp Pulse Resp BP Pulse Ox 05/31/18 02:04 32 112/80 05/31/18 02:00 27 05/31/18 01:34 83 25 112/65 93 05/31/18 01:32 25 05/31/18 01:00 97.6 F 68 20 78/48 96 - Laboratory Lab Results: Lab Results 05/31/18 05/31/18 Range/Units 01:48 01:48 WBC 4.3 (3.5-10.8) 10^3/ul RBC 4.33 (4.00-5.40) 10^6/ul Hgb 13.4 L (14.0-18.0) g/dl Hct 40 L (42-52) % MCV 91 (80-94) fL MCH 31 (27-31) pg MCHC 34 (31-36) g/dl RDW 14 (10.5-15) % Plt Count 144 L (150-450) 10^3/ul MPV 8.5 (7.4-10.4) um3 Neut % (Auto) 95.8 H (38-83) % Lymph % (Auto) 2.8 L (25-47) % [place] % (Auto) 0.8 (0-7) % Eos % (Auto) 0.4 (0-6) % Baso % (Auto) 0.2 (0-2) % Absolute Neuts (auto) 4.1 (1.5-7.7) 10^3/ul Absolute Lymphs (auto) 0.1 L (1.0-4.8) 10^3/ul Absolute Monos (auto) 0 (0-0.8) 10^3/ul Absolute Eos (auto) 0 (0-0.6) 10^3/ul Absolute Basos (auto) 0 (0-0.2) 10^3/ul Absolute Nucleated RBC 0 10^3/ul Nucleated RBC % 0.1 Sodium 131 L (135-145) mmol/L Potassium 4.5 (3.5-5.0) mmol/L Chloride 98 L (101-111) mmol/L Carbon Dioxide 24 (22-32) mmol/L Anion Gap 9 (2-11) mmol/L BUN 26 H (6-24) mg/dL Creatinine 2.15 H (0.67-1.17) mg/dL Est GFR ( Amer) 36.5 (>60) Est GFR (Non-Af Amer) 30.2 (>60) BUN/Creatinine Ratio 12.1 (8-20) Glucose 166 H (70-100) mg/dL Calcium 8.8 (8.6-10.3) mg/dL Magnesium 2.1 (1.9-2.7) mg/dL Total Bilirubin 4.80 H D (0.2-1.0) mg/dL AST 518 H (13-39) U/L ALT Pending Alkaline Phosphatase 277 H (34-104) U/L Troponin I 0.03 (<0.04) ng/mL Total Protein 6.4 (6.4-8.9) g/dL Albumin 3.6 (3.2-5.2) g/dL Globulin 2.8 (2-4) g/dL Albumin/Globulin Ratio 1.3 (1-3) TSH Pending Result Diagrams: 18 01:48 18 01:48 Lab Statement: Any lab studies that have been ordered have been reviewed, and results considered in the medical decision making process. - Radiology CXR Radiology Interpretation Completed By: ED Physician - CXR reveals, per ED physician, small little pleural effusion in left lower lobe. - CT Brain CT CT Interpretation Completed By: Radiologist - Brain CT reveals, per radiologist , no acute findings. ED physician has reviewed this radiology report. - EKG 0119 Cardiac Rate: Tachycardia EKG Rhythm: Sinus Rhythm - 149 BPM EKG Interpretation: Lots of arifact. Difficult to read. Re-Evaluation - Re-Evaluation First Eval Re-Evaluation Time: 02:31 Change: Worse Comment: Pt went to the bathroom, tried to get off the stool and fell, hit his head. No LOC. Second Eval Re-Evaluation Time: 03:55 Change: Unchanged Comment: Discussed results and plan of care with patient and family Abdominal Pain Fem Course/Dx - Course Course Of Treatment: This patient is a 72 year old M presenting to [facility] accompanied by with a chief complaint of epigastric abd pain that began . Patient reports that he was seen at [facility] on 05/28/2018, and was diagnosed with constipation. Physical Exam Findings: Jaundiced and diffuse abd tenderness. CXR reveals, per ED physician, small little pleural effusion in left lower lobe. Brain CT reveals, per radiologist, no acute findings. Bloodwork and UA obtained. In the ED course the patient was given fluids. Consult with Dr. Bae (hospitalist) at 0420. She agrees to admit patient for further evaluation. The patient is agreeable with this plan. - Diagnoses Provider Diagnoses: Jaundice, Elevated LFTs, Renal insufficiency - Provider Notifications Discussed Care Of Patient With: Emily Pearson Time Discussed With Above Provider: 02:27 Instructed by Provider To: Other - Consult with Dr. Pearson (hospitalist) at 0227. She recommends pt be transferred for further evaluation. Consult with Dr. Bae (hospitalist) at 0420. She agrees to admit patient for further evaluation - Critical Care Time Critical Care Time: 30-74 min Discharge - Sign-Out/Discharge Documenting (check all that apply): Patient Departure - Transfer - Discharge Plan Condition: Stable Disposition: TRANS HIGHER LVL OF CARE FAC Referrals: Bryant Borrego MD [Primary Care Provider] - - Billing Disposition and Condition Condition: STABLE Disposition: Trans Higher Lvl of Care Fac Attestations Scribe Attestation: This is thony Hanna documenting for attending Gayle Huerta MD. User Type: Provider with Scribe Provider Attestation: The documentation recorded by the scribe accurately reflects the service I personally performed and the decisions made by me.
[2018-05-31 02:55] LABS: INR 3.95 (0.77-1.02)
[2018-05-31] MEDS: NS 0.9% 1000 ML* 1,000 ML IV ONE ×3 (03:10→07:30)
--- NOTE | 2018-05-31 04:33 | RAD ---
EXAM: CT Head Without Intravenous Contrast CLINICAL HISTORY: 72 years old, male; Injury or trauma; Fall; Initial encounter; Abrasion; Not specified; Additional info: Fall, head trauma TECHNIQUE: Axial computed tomography images of the head/brain without intravenous contrast. COMPARISON: BRAIN WO CT BRAIN WO 2014-06-15 00:22 FINDINGS: Brain: There is mild diffuse cerebral atrophy present, consistent with this patient's age. No hemorrhage. No significant white matter disease. Ventricles: Unremarkable. No ventriculomegaly. Bones/joints: Unremarkable. No acute fracture. Soft tissues: Unremarkable. Sinuses: Unremarkable as visualized. No acute sinusitis. Mastoid air cells: Unremarkable as visualized. No mastoid effusion. IMPRESSION: No acute findings. R0
[2018-05-31] MEDS: Piperacillin/Tazobac ADVAN(*) 3.375 GM in NS 0.9% 100 ML* 100 ML IVPB ONE ×2 (06:57→07:01)
--- NOTE | 2018-05-31 07:44 | RAD ---
HISTORY: tachycardia, r/o pneumonia COMPARISONS: December 12, 2017 VIEWS: 1: frontal portable view of the chest at 2:11 AM FINDINGS: LINES AND TUBES: The left-sided pacemaker is noted. CARDIOMEDIASTINAL SILHOUETTE: The cardiomediastinal silhouette is normal for portable technique. PLEURA: The costophrenic angles are sharp. No pleural abnormalities are noted. LUNG PARENCHYMA: The lungs are clear. ABDOMEN: The upper abdomen is clear. There is no subphrenic gas. BONES AND SOFT TISSUES: The patient is status post median sternotomy. IMPRESSION: NO ACTIVE CARDIOPULMONARY DISEASE. R1
[2018-05-31 08:09] VITALS: BP 82/51
--- NOTE | 2018-05-31 08:36 | ED ---
Progress - Progress Note Progress Note: This patient is a 72 year old M presenting to [facility] accompanied by with a chief complaint of epigastric abd pain that began 05/28/2018. Patient reports that he was seen at [facility] on 05/28/2018, and was diagnosed with constipation. Physical Exam Findings: Jaundiced and diffuse abd tenderness. CXR reveals, per ED physician, small little pleural effusion in left lower lobe. Brain CT reveals , per radiologist, no acute findings. Bloodwork and UA obtained. In the ED course the patient was given fluids. Consult with Dr. Bae (hospitalist) at 0420. She agrees to admit patient for further evaluation. The patient is agreeable with this plan. Prior to D/C the patient began to drop his blood pressure into the 70's systolic. Dr. Huerta spoke with Dr. Hamilton the catcher plug at [facility] who requested that the patient be started on a Levophed preferably through a central line. Levophed was initially started at 20 mcg/min through a peripheral line of which we have 218 gauges and this improved his pressure up into the 80s. His lipase was not back yet but I spoke with the lab and they dictated that it was at least over 1000. He has pancreatitis and possibly hemorrhagic pancreatitis and we are giving him IV fluids as well as the pressors. His INR is 4 and I'm hesitant to start a central line just prior to loading him into an ambulance for 45 minutes. I encouraged rapid transport with lights and sirens and sent a nurse with the patient to titrate his levophed and continue fluids. Re-Evaluation - Re-Evaluation First Eval Re-Evaluation Time: 02:31 Change: Worse Comment: Pt went to the bathroom, tried to get off the stool and fell, hit his head. No LOC. Second Eval Re-Evaluation Time: 03:55 Change: Unchanged Comment: Discussed results and plan of care with patient and family Course/Dx - Course Course Of Treatment: Levophed was initially started at 20 mcg/min through a peripheral line of which we have 218 gauges and this improved his pressure up into the 80s. His lipase was not back yet but I spoke with the lab and they dictated that it was at least over 1000. He has pancreatitis and possibly hemorrhagic pancreatitis and we are giving him IV fluids as well as the pressors. His INR is 4 and I'm hesitant to start a central line just prior to loading him into an ambulance for 45 minutes. I encouraged rapid transport with lights and sirens and sent a nurse with the patient to titrate his levophed and continue fluids. - Diagnoses Provider Diagnoses: Jaundice, Elevated LFTs, Renal insufficiency, Pancreatitis - Provider Notifications Time Discussed With Above Provider: 02:27 Instructed by Provider To: Other - Consult with Dr. Pearson (hospitalist) at 0227. She recommends pt be transferred for further evaluation. Consult with Dr. Bae (hospitalist) at 0420. She agrees to admit patient for further evaluation - Critical Care Time Critical Care Time: 30-74 min Discharge - Sign-Out/Discharge Documenting (check all that apply): Patient Departure - Discharge Plan Condition: Guarded Disposition: TRANS HIGHER LVL OF CARE FAC Referrals: Bryant Borrego MD [Primary Care Provider] - - Billing Disposition and Condition Condition: GUARDED Disposition: Trans Higher Lvl of Care Fac
--- NOTE | 2018-06-02 06:57 | PN ---
Progress Note - Progress Note Date of Service: 05/31/18 Note: Pt. seen in ED 05/31 and transferred for higher level of care. Preliminary blood culture today is growing klebsiella pneumoniae. Will fax final culture when it is available.
--- NOTE | 2018-06-04 06:41 | PN ---
Progress Note - Progress Note Date of Service: 06/04/18 Note: final cultures available. will have results faxed to [facility]. gave info to escrow clerk.
== END | disposition short-term general hospital (02) ==
LOC: ED 00:59
DX: R17 Unspecified jaundice (principal); R79.89 Other specified abnormal findings of blood chemistry; N28.9 Disorder of kidney and ureter, unspecified; K85.90 Acute pancreatitis without necrosis or infection, unspecified; R10.13 Epigastric pain; Z79.01 Long term (current) use of anticoagulants; I25.10 Atherosclerotic heart disease of native coronary artery without angina pectoris; Z95.0 Presence of cardiac pacemaker; Z87.891 Personal history of nicotine dependence; R11.10 Vomiting, unspecified
CPT/HCPCS: 36415; 70450; 71045; 80053; 80329; 83690; 83735; 84443; 84484; 85025; 85610; 85730; 87040; 87077; 87186; 87205; 93005; 96365; 99285; G0480; J2543

== ENCOUNTER 2019-10-01 15:00 | Emergency (ER) | payer MEDICARE, BC, OTHER ==
--- NOTE | 2019-10-01 16:45 | ED ---
Influenza-Like Illness - HPI Summary HPI Summary: 74-year-old male presents with fevers chills for the past couple days. He states he felt very weak. He states he feels little unstable when walking. He denies abdominal pain. No nausea or vomiting. Has been having a productive cough. he admits to sinus congestion. He has all over body aches. no increasing swelling in legs. no one else is sick. He states he is having hot and cold chills. He has been taking Tylenol for symptoms. Has history of a defibrillator and high blood pressure and diabetes. no history of asthma or COPD. - History of Current Complaint Chief Complaint: EDFluSymptoms Time Seen by Provider: 10/01/19 16:14 - Allergy/Home Medications Allergies/Adverse Reactions: Allergies Allergy/AdvReac Type Severity Reaction Status Date / Time No Known Allergies Allergy Verified 10/01/19 15:05 PMH/Surg Hx/FS Hx/Imm Hx Endocrine/Hematology History: Reports: Hx Anticoagulant Therapy - ASA, Hx Diabetes - borderline Denies: Hx Blood Disorders, Hx Blood Transfusions, Hx Bone Marrow Disease, Hx Systemic Lupus Erythematosus, Hx Sickle Cell Disease, Hx Thyroid Disease, Hx Anemia, Hx Unexplained Bleeding, Other Endocrine/Hematological Disorders Cardiovascular History: Reports: Hx Coronary Artery Disease, Hx Hypercholesterolemia, Hx Hypertension, Hx Pacemaker/ICD - 2017 Denies: Hx Congestive Heart Failure, Hx Deep Vein Thrombosis, Hx Embolism, Hx Myocardial Infarction, Hx Peripheral Vascular Disease Comment Only: Other Cardiovascular Problems/Disorders - QUADRUPLE BYPASS Respiratory History: Denies: Hx Asthma, Hx Chronic Obstructive Pulmonary Disease (COPD), Hx Lung Cancer, Hx Pneumonia, Hx Pulmonary Embolism, Other Respiratory Problems/ Disorders GI History: Denies: Hx Gall Bladder Disease, Hx Gastrointestinal Bleed, Hx Ulcer, Hx Urosepsis History: Denies: Hx Kidney Stones, Hx Renal Disease Musculoskeletal History: Reports: Hx Back Problems - tightness-chronic, 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 "there from ", Hx Orthopedic Injury - Right foot fracture Denies: Hx Bursitis, Hx Fibromyalgia, Hx Gout, Hx Osteoporosis, Hx Scoliosis , Hx Tendonitis, Other Musculoskeletal History Sensory History: Reports: Hx Cataracts - removed, Hx Contacts or Glasses - glasses Denies: Hx Hearing Aid, Other Sensory Impairments Opthamlomology History: Reports: Hx Cataracts - removed, Hx Contacts or Glasses - glasses Denies: Other Sensory Impairments Neurological History: Denies: Hx Dementia, Hx Developmental Delay, Hx Migraine, Hx Seizures, Hx Transient Ischemic Attacks (TIA) Comment Only: Other Neuro Impairments/Disorders - 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 CATARACTS [facility]. RIGHT SHOULDER 2009 [facility]. OPEN LAILA [address] [facility]. APPY 2010 [facility]. QUINTUPLE BYPASS FEBRUARY 2016, [facility]. SEVERAL BASAL CELL REMOVALS [facility]. VASECTOMY Hx Anesthesia Reactions: No Infectious Disease History: No Infectious Disease History: Denies: Hx Hepatitis, Hx Human Immunodeficiency Virus (HIV), History Other Infectious Disease, Traveled Outside the [place] in Last 30 Days - Family History Known Family History: Positive: Cardiac Disease, Hypertension - Social History Alcohol Use: Weekly Alcohol Amount: 1/WEEK Hx Substance Use: No Substance Use Type: Reports: None Hx Tobacco Use: Yes Smoking Status (MU): Former Smoker Type: Cigarettes Amount Used/How Often: 1 PPD X 28 YEARS Length of Time of Smoking/Using Tobacco: 25+ YEARS Have You Smoked in the Last Year: No Review of Systems Positive: Fever, Chills Positive: Nasal Discharge Negative: Chest Pain Positive: Cough. Negative: Shortness Of Breath Negative: Abdominal Pain All Other Systems Reviewed And Are Negative: Yes Physical Exam Triage Information Reviewed: Yes Vital Signs On Initial Exam: Initial Vitals Temp Pulse Resp BP Pulse Ox 98.2 F 80 16 110/64 95 10/01/19 15:01 10/01/19 15:01 10/01/19 15:01 10/01/19 15:01 10/01/19 15:01 Vital Signs Reviewed: Yes Appearance: Positive: Well-Appearing Skin: Positive: Warm, Dry Head/Face: Positive: Normal Head/Face Inspection Eyes: Positive: Normal, EOMI, ASIM, Conjunctiva Clear ENT: Positive: Normal ENT inspection, Pharynx normal, TMs normal Neck: Positive: Supple, Nontender, No Lymphadenopathy. Negative: Nuchal Rigidity Respiratory/Lung Sounds: Positive: Clear to Auscultation, Breath Sounds Present Cardiovascular: Positive: Normal, RRR Abdomen Description: Positive: Nontender, Soft Bowel Sounds: Positive: Present Musculoskeletal: Positive: Normal Neurological: Positive: Normal Psychiatric: Positive: Normal Procedures - Sedation Patient Received Moderate/Deep Sedation with Procedure: No Diagnostics - Vital Signs Vital Signs Temp Pulse Resp BP Pulse Ox 10/01/19 15:01 98.2 F 80 16 110/64 95 - Laboratory Lab Results: Lab Results 10/01/19 Range/Units 16:27 Influenza A (Rapid) Pending Influenza B (Rapid) Pending Result Diagrams: 10/01/19 16:48 10/01/19 16:48 Lab Statement: Any lab studies that have been ordered have been reviewed, and results considered in the medical decision making process. 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 Re-Evaluation - Re-Evaluation First Eval Re-Evaluation Time: 17:28 Change: Improved Comment: feeling better after fluids Flu Symptom Course/Dx - Course Course Of Treatment: 74-year-old male presents with fevers chills for the past couple days. He states he felt very weak. He states he feels little unstable when walking. He denies abdominal pain. No nausea or vomiting. Has been having a productive cough. he admits to sinus congestion. He has all over body aches. no increasing swelling in legs. no one else is sick. He states he is having hot and cold chills. He has been taking Tylenol for symptoms. Has history of a defibrillator and high blood pressure and diabetes. no history of asthma or COPD. on exam lungs CTA. vitals stable. flu neg. wbc normal. bnp slightly elevated. chest xray shows pneumonia. will treat with augmentin as is on warfarin. feeling better after fluids. told follow up with primary. warned if develop worsening symptoms to return. patient understand and agrees with plan. - Diagnoses Differential Diagnosis/HQI/PQRI: Positive: Influenza, Pneumonia, Upper Respiratory Infection Provider Diagnoses: Pneumonia Discharge ED - Sign-Out/Discharge Documenting (check all that apply): Patient Departure - Discharge Plan Condition: Good Disposition: HOME Patient Education Materials: Pneumonia (ED) Referrals: Bryant Borrego MD [Primary Care Provider] - Additional Instructions: take augmentin twice a day for 5 days take tyenlol every 6 hours for fever drink plenty of fluids Follow up with primary within 5 days Return to ED if develop any new or worsening symptoms - Billing Disposition and Condition Condition: GOOD Disposition: Home
[2019-10-01 16:57] LABS: Influenza A Molecular NEGATIVE (Negative); Influenza B Molecular NEGATIVE (Negative)
[2019-10-01 16:57] LABS: ABS Lymphocytes 0.5 10^3/ul (1.0-4.8); ABS Monocytes 0.9 10^3/ul (0-0.8); ABS Neutrophils 6.4 10^3/ul (1.5-7.7); Hematocrit 38 % (42-52); Hemoglobin 13.2 g/dL (14.0-18.0); Lymphocyte % 5.9 %; Mean Corpuscular HGB Conc 34 g/dL (31-36); Mean Corpuscular Hemoglobin 31 pg (27-31); Mean Corpuscular Volume 90 fL (80-94); Mean Platelet Volume 8.3 fL (7.4-10.4); Nucleated Red Blood Cells % 0.1; Platelet Count 151 10^3/uL (150-450); Red Blood Count 4.29 10^6 /uL (4.18-5.48); Red Cell Distribution Width 15 % (10-15); White Blood Count 7.7 10^3/uL (3.5-10.8)
[2019-10-01] MEDS: NS 0.9% 1000 ML** 1,000 ML IV ONE (17:08)
[2019-10-01 17:18] LABS: Albumin 3.5 g/dL (3.2-5.2); Albumin/Globulin Ratio 1.1 (1-3); BUN/Creatinine Ratio 19.4 (8-20); C Reactive Protein 214.72 mg/L (<8.01); Calcium 8.5 mg/dL (8.6-10.3); EGFR African American 44.6 (>60); EGFR Non-African American 36.9 (>60); Globulin 3.1 g/dL (2-4); Potassium 4.1 mmol/L (3.5-5.0); Total Bilirubin 0.9 mg/dL (0.2-1.0); Total Protein 6.6 g/dL (6.4-8.9)
[2019-10-01] MEDS: Amoxicillin/Clavulanate TAB* 875 MG PO ONE (18:09)
[2019-10-01 19:00] VITALS: BP 96/60
== END 2019-10-01 19:00 | disposition home or self-care (01) ==
LOC: ED 15:00
DX: J18.9 Pneumonia, unspecified organism (principal); E11.9 Type 2 diabetes mellitus without complications; I25.10 Atherosclerotic heart disease of native coronary artery without angina pectoris; E78.00 Pure hypercholesterolemia, unspecified; I10 Essential (primary) hypertension; Z95.1 Presence of aortocoronary bypass graft; Z95.810 Presence of automatic (implantable) cardiac defibrillator; Z85.828 Personal history of other malignant neoplasm of skin; Z87.891 Personal history of nicotine dependence; Z79.82 Long term (current) use of aspirin
CPT/HCPCS: 36415; 71046; 80053; 83605; 83880; 85025; 86140; 87040; 96360; 99282; A9270-GY

== ENCOUNTER 2019-10-04 15:04 | Inpatient (IN) | payer MEDICARE, BC, OTHER ==
[2019-10-04] MEDS ORDERED: NS 0.9% 1000 ML** 1,000 ML IV ONE (15:19)
--- NOTE | 2019-10-04 15:20 | ED ---
Respiratory - HPI Summary HPI Summary: 74 year old M arriving via private car with complains of worsening cough, weakness, fatigue, chills since yesterday 10/03 PM. Patient seen in ED on 10/01 and was dx pneumonia, discharged home, and placed on antibiotics. Patient returned to ED today 10/04 because his symptoms are not improving on antibiotics. Yesterday 10/03 PM, patient stood up and suddenly developed dizziness and fell on to his right side after which he developed right hip pain for which he has been taking Tylenol with relief. states patient has the urge to urinate but has decreased urine output. Patient has been drinking fluids. Pain rated 0/10 in severity. Symptoms aggravated by nothing. Symptoms alleviated by Tylenol. Medications reviewed. Allergies noted. No respiratory hx. No hx CHF. - History of Current Complaint Chief Complaint: EDUpperRespComplaint Stated Complaint: PNEUMONIA PER PT Time Seen by Provider: 10/04/19 15:11 Hx Obtained From: Patient, Family/Slotter Operator Helper - Onset/Duration: Lasting Days - yesterday 10/03 PM, Still Present Timing: Constant Current Severity: None Pain Intensity: 0 Aggravating Factor(s): Nothing Alleviating Factor(s): Other - Tylenol - Allergy/Home Medications Allergies/Adverse Reactions: Allergies Allergy/AdvReac Type Severity Reaction Status Date / Time No Known Allergies Allergy Verified 10/04/19 15:11 Home Medications: Home Medications Fluticasone NASAL SPRAY 50MCG* [Flonase NASAL SPRAY 50MCG*] 2 spray BOTH NARES DAILY PRN 10/04/19 [History Confirmed 10/04/19] predniSONE TAB* [Deltasone TAB*] 5 mg PO DAILY PRN 10/04/19 [History Confirmed 10/04/19] traMADol TAB* [Ultram*] 50 mg PO Q12H PRN 10/04/19 [History Confirmed 10/04/19] PMH/Surg Hx/FS Hx/Imm Hx Endocrine/Hematology History: Reports: Hx Anticoagulant Therapy - ASA, Hx Diabetes - borderline Denies: Hx Blood Disorders, Hx Blood Transfusions, Hx Bone Marrow Disease, Hx Systemic Lupus Erythematosus, Hx Sickle Cell Disease, Hx Thyroid Disease, Hx Anemia, Hx Unexplained Bleeding, Other Endocrine/Hematological Disorders Cardiovascular History: Reports: Hx Coronary Artery Disease, Hx Hypercholesterolemia, Hx Hypertension, Hx Pacemaker/ICD - 2017 Denies: Hx Congestive Heart Failure, Hx Deep Vein Thrombosis, Hx Embolism, Hx Myocardial Infarction, Hx Peripheral Vascular Disease Comment Only: Other Cardiovascular Problems/Disorders - QUADRUPLE BYPASS Respiratory History: Denies: Hx Asthma, Hx Chronic Obstructive Pulmonary Disease (COPD), Hx Lung Cancer, Hx Pneumonia, Hx Pulmonary Embolism, Other Respiratory Problems/ Disorders GI History: Denies: Hx Gall Bladder Disease, Hx Gastrointestinal Bleed, Hx Ulcer, Hx Urosepsis History: Denies: Hx Kidney Stones, Hx Renal Disease Musculoskeletal History: Reports: Hx Back Problems - tightness-chronic, 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 "there from ", Hx Orthopedic Injury - Right foot fracture Denies: Hx Bursitis, Hx Fibromyalgia, Hx Gout, Hx Osteoporosis, Hx Scoliosis , Hx Tendonitis, Other Musculoskeletal History Sensory History: Reports: Hx Cataracts - removed, Hx Contacts or Glasses - glasses Denies: Hx Hearing Aid, Other Sensory Impairments Opthamlomology History: Reports: Hx Cataracts - removed, Hx Contacts or Glasses - glasses Denies: Other Sensory Impairments Neurological History: Denies: Hx Dementia, Hx Developmental Delay, Hx Migraine, Hx Seizures, Hx Transient Ischemic Attacks (TIA) Comment Only: Other Neuro Impairments/Disorders - 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 CATARACTS [facility] [place]. RIGHT SHOULDER 2009 [facility] [place]. [facility]. APPY 2010 [facility] [place]. QUINTUPLE BYPASS FEBRUARY 2016, [facility]. SEVERAL BASAL CELL REMOVALS [facility]. VASECTOMY Hx Anesthesia Reactions: No Infectious Disease History: No Infectious Disease History: Denies: Hx Hepatitis, Hx Human Immunodeficiency Virus (HIV), History Other Infectious Disease, Traveled Outside the [place] in Last 30 Days - Family History Known Family History: Positive: Cardiac Disease, Hypertension - Social History Alcohol Use: Weekly Alcohol Amount: 1/WEEK Hx Substance Use: No Substance Use Type: Reports: None Hx Tobacco Use: Yes Smoking Status (MU): Former Smoker Type: Cigarettes Amount Used/How Often: 1 PPD X 28 YEARS Length of Time of Smoking/Using Tobacco: 25+ YEARS Have You Smoked in the Last Year: No Review of Systems Positive: Chills, Fatigue Positive: Cough Positive: urgency Positive: Other - right hip pain Positive: Weakness All Other Systems Reviewed And Are Negative: Yes Physical Exam - Summary Physical Exam Summary: Constitutional: Well-developed, Well-nourished, Alert. (-) Distressed. Had difficulty walking between wheelchair and bed. Needed assistance. Skin: Warm, Dry HENT: Normocephalic; Atraumatic Eyes: Conjunctiva normal Neck: Musculoskeletal ROM normal neck. (-) JVD, (-) Stridor, (-) Tracheal deviation Cardio: Rhythm regular, rate normal, Heart sounds normal; Intact distal pulses; Radial pulses are 2+ and symmetric. (-) Murmur Pulmonary/Chest wall: Decreased breath sounds in the right upper lobe. Abd: Soft, (-) tenderness, (-) Distension, (-) Guarding, (-) Rebound Musculoskeletal: (-) Edema. No hank tenderness in the right hip. Lymph: (-) Cervical adenopathy Neuro: Alert, Oriented x3 Psych: Mood and affect Normal Triage Information Reviewed: Yes Vital Signs On Initial Exam: Initial Vitals Temp Pulse Resp BP Pulse Ox 97.6 F 73 16 97/48 94 10/04/19 15:07 10/04/19 15:07 10/04/19 15:07 10/04/19 15:07 10/04/19 15:07 Vital Signs Reviewed: Yes Procedures - Sedation Patient Received Moderate/Deep Sedation with Procedure: No Diagnostics - Vital Signs Vital Signs Temp Pulse Resp BP Pulse Ox 10/04/19 15:07 97.6 F 73 16 97/48 94 - Laboratory Result Diagrams: 10/04/19 15:30 10/04/19 15:30 Lab Statement: Any lab studies that have been ordered have been reviewed, and results considered in the medical decision making process. - Radiology CXR Radiology Interpretation Completed By: Radiologist Summary of Radiographic Findings: PERSISTENT AND SLIGHTLY PROGRESSED RIGHT UPPER LUNG CONSOLIDATION. RECOMMEND FOLLOW-UP UNTIL RESOLUTION TO EXCLUDE UNDERLYING PULMONARY PARENCHYMAL PATHOLOGY. ED PHYSICIAN HAS REVIEWED THIS REPORT. - EKG 1538 Cardiac Rate: NL - 67 BPM EKG Rhythm: Sinus Rhythm Ectopy: PVCs Summary of EKG Findings: First degree heart block. 1 PVC. ED PHYSICIAN HAS REVIEWED AND INTERPRETED THIS EKG. Disposition - Course Course Of Treatment: Patient is here with worsening restaurant status and weakness following a pneumonia diagnosis 2 days ago. Patient started on Augmentin but has not been getting better. Patient had a mechanical fall last night where he injured his right hip but has no right hip tenderness. Patient has a repeat chest x-ray shows worsening of his right upper lobe pneumonia. Patient had blood or performed including cultures. Patient was given Rocephin and azithromycin. Even patient's failed outpatient antibiotics, patient was admitted to the hospitalist. - Diagnoses Provider Diagnoses: Right upper lobe pneumonia, Weakness, Elevated LFTs - Physician Notifications Discussed Care Of Patient With: Cheryl Leblanc Time Discussed With Above Provider: 16:17 Instructed by Provider To: Admit As Inpatient Discharge ED - Sign-Out/Discharge Documenting (check all that apply): Patient Departure - Discharge Plan Condition: Stable Disposition: ADMITTED TO [facility] Referrals: Bryant Borrego MD [Primary Care Provider] - - Billing Disposition and Condition Condition: STABLE Disposition: Admitted to [facility] - Attestation Statements Document Initiated by Sofia: Yes Documenting Scribe: Angela Manzanares Provider For Whom Sofia is Documenting (Include Credential): Wilfrido Jara MD Scribe Attestation: IAngela, scribed for Wilfrido Jara MD on 10/04/19 at 1803. Scribe Documentation Reviewed: Yes Provider Attestation: The documentation as recorded by the Angela bhandari accurately reflects the service I personally performed and the decisions made by me, Wilfrido Jara MD Status of Scribe Document: Viewed
[2019-10-04 15:40] LABS: ABS Lymphocytes 0.4 10^3/ul (1.0-4.8); ABS Monocytes 0.6 10^3/ul (0-0.8); ABS Neutrophils 5.5 10^3/ul (1.5-7.7); Eosinophil % 0.2 %; Hematocrit 37 % (42-52); Hemoglobin 12.7 g/dL (14.0-18.0); Lymphocyte % 6.7 %; Mean Corpuscular HGB Conc 34 g/dL (31-36); Mean Corpuscular Hemoglobin 31 pg (27-31); Mean Corpuscular Volume 89 fL (80-94); Mean Platelet Volume 8.1 fL (7.4-10.4); Platelet Count 149 10^3/uL (150-450); Red Blood Count 4.17 10^6 /uL (4.18-5.48); Red Cell Distribution Width 15 % (10-15); White Blood Count 6.5 10^3/uL (3.5-10.8)
[2019-10-04 15:56] LABS: Albumin 3.2 g/dL (3.2-5.2); BUN/Creatinine Ratio 20.6 (8-20); Calcium 8.3 mg/dL (8.6-10.3); EGFR African American 59.1 (>60); EGFR Non-African American 48.9 (>60); Globulin 3.2 g/dL (2-4); Potassium 3.5 mmol/L (3.5-5.0); Total Bilirubin 0.7 mg/dL (0.2-1.0); Total Protein 6.4 g/dL (6.4-8.9)
[2019-10-04] MEDS ORDERED: cefTRIAXone(*) 1 GM in NS 0.9% 50 ML* 50 ML IVPB ONE (16:04)
[2019-10-04] MEDS ORDERED: Azithromycin 500 mg/250 ml NS 500 MG/250 ML BAG IVPB ONE (16:04)
[2019-10-04] MEDS ORDERED: Cyclobenzaprine TAB* 10 MG PO PRN (17:05)
[2019-10-04] MEDS ORDERED: Polyethylene Glycol 3350* 17 GM PACKET PO PRN (17:05)
[2019-10-04] MEDS ORDERED: traMADol TAB* 50 MG PO PRN (17:05)
[2019-10-04] MEDS ORDERED: Fluticasone NASAL SPRAY 50MCG* 16 gm SPRAY BTL BOTH NARES PRN (17:05)
[2019-10-04] MEDS ORDERED: Meclizine TAB* 12.5 MG PO PRN (17:05)
[2019-10-04] MEDS ORDERED: Acetaminophen TAB* 325 MG PO PRN (17:09)
[2019-10-04 17:15] LABS: INR 2.98 (0.82-1.09)
[2019-10-04] MEDS ORDERED: NS 0.9% 1000 ML** 1,000 ML IV SCH (17:15)
[2019-10-04 17:30] LABS: Urine Appearance Cloudy; Urine Bilirubin Negative (Negative); Urine Blood 2+ (Negative); Urine Color Amber; Urine Glucose Negative (Negative); Urine Ketones Trace (Negative); Urine Nitrite Negative (Negative); Urine Protein 2+(100 mg/dL) (Negative); Urine Specific Gravity 1.016 (1.010-1.030); Urine Urobilinogen Positive (Negative)
[2019-10-04 17:33] LABS: Urine Bacteria Absent (Absent); Urine Red Blood Cell 1+(3-5/hpf) (Absent); Urine White Blood Cell Trace(0-5/hpf) (Absent)
[2019-10-04] MEDS: DOXYcycline IV* 100 MG in NS 0.9% 250 ML* 250 ML IVPB SCH (20:01)
[2019-10-04] MEDS: Warfarin TAB(*) 5 MG PO SCH (20:02)
--- NOTE | 2019-10-04 20:03 | HP ---
CC: Dr. Borrego* HISTORY AND PHYSICAL: DATE OF ADMISSION: 10/04/19 PRIMARY CARE PROVIDER: Dr. Borrego. CHIEF COMPLAINT: Cough and shortness of breath. HISTORY OF PRESENT ILLNESS: Mr. Falcon is a 74-year-old male with history of paroxysmal atrial fibrillation, coronary artery disease status post bypass in the past who presented to the hospital complaining of cough. The patient presented on 10/01/19. He was here being evaluated for cough and fevers and he was diagnosed with right upper lobe pneumonia. At that point, he was placed on Augmentin. He was discharged home and he stated that although for initial few hours he felt better, later on he continued to cough again and having nighttime chills and fevers. He came today to the ED for reevaluation. His pneumonia on the chest x- ray appears to have enlarged. He also has elevation of liver function tests. He is going to be admitted with the diagnosis of pneumonia. Please also note that patient failed outpatient treatment with Augmentin. PAST MEDICAL HISTORY: 1. History of 5-vessel coronary artery bypass grafting in 2016. 2. Postoperative placement of AICD and pacemaker. 3. History of obesity. 4. Hypertension. 5. Hyperlipidemia. 6. Diabetes type 2, [id number]. 7. Chronic kidney disease stage 3. 8. Paroxysmal atrial fibrillation, on Coumadin and amiodarone. MEDICATIONS: Include: 1. Fluticasone nasal spray 2 sprays both nostrils daily p.r.n. 2. Ultram 50 mg every 12 hours p.r.n. 3. Metformin 500 mg b.i.d. with meals. 4. Lisinopril 2.5 mg daily. 5. Coumadin 7.5 mg Tuesdays and and 5 mg on remaining days of the week. 6. MiraLAX 17 g daily p.r.n. 7. [place]-3 fatty acids 1000 mg daily. 8. Multivitamin 1 tablet daily. 9. Antivert 12.5 mg t.i.d. p.r.n. 10. Atrovent nasal spray 1 spray both nostrils 3 times a day p.r.n. 11. Flexeril 10 mg bedtime p.r.n. 12. Coreg 12.5 mg b.i.d. with meals. 13. Lipitor 20 mg daily. 14. Aspirin 325 mg daily. 15. Augmentin 875 mg b.i.d. started in the morning on 10/02/19. 16. Amiodarone 200 mg daily. ALLERGIES: No known drug allergies. FAMILY HISTORY: Positive for mother with heart disease. SOCIAL HISTORY: The patient quit smoking over 40 years ago. He denies any alcohol or drug use. He lives with his who is his healthcare proxy. REVIEW OF SYSTEMS: Please see history of present illness. Positive for cough. Positive for bothersome nighttime cough. The cough is nonproductive. Positive for chills and fevers every night. Positive also for poor appetite. The patient also stated that he was so weak that he fell out of bed when he was trying to get up to go to the bathroom last night. He hit his right side but he did not sustain any major injuries and he has walked since then without any major problems. Positive also for generalized weakness. All the remaining 12 systems were reviewed with the patient and were otherwise negative. PHYSICAL EXAMINATION GENERAL: The patient is a very pleasant 74-year-old male, who is in no acute distress. The patient is alert,and oriented x3. VITAL SIGNS: Blood pressure of 114/65, heart rate of 70 and regular, respiratory rate 22, oxygen saturation 93% on room air, temperature 97.6. HEENT: Head: Atraumatic, normocephalic. Eyes: Pupils are equal, reactive to light and accommodation. Oropharynx clear. Mucosa moist. NECK: Supple. No JVD. No bruits bilaterally. RESPIRATORY: Very scant rhonchi in right upper lobe, otherwise clear bilaterally. CARDIOVASCULAR: Regular rate and rhythm. No murmur. ABDOMEN: Protuberant, distended, slightly tympanic to percussion. Soft, nontender. Bowel sounds are present in all 4 quadrants. EXTREMITIES: There is no ankle edema. Pulses are +2 bilaterally. There is no clubbing or cyanosis. NEUROLOGIC: Speech is clear. Cranial nerves II through XII grossly intact. Motor strength is 5/5 bilaterally. PSYCHIATRIC: On psychiatric evaluation, pleasant and cooperative with the evaluation, oriented x3, with no evidence of anxiety or depression. LABORATORY DATA/DIAGNOSTIC STUDIES: White blood cell count of 6.5, hemoglobin is 12.7, hematocrit is 37, and platelets 149. Sodium 133, potassium 3.5, chloride 99, carbon dioxide 25, BUN 29, creatinine 1.4. Liver function tests bilirubin of 0.7, AST of 151, ALT of 152, alkaline phosphatase of 49. Lactic acid was 1.2. C-reactive protein obtained 2 days ago was 214. Portable chest x-ray, impression: "Persistent and slightly progressed right upper lobe consolidation, recommend followup until resolution to exclude underlying pulmonary parenchymal pathology." The patient's EKG showed sinus rhythm with a heart rate of 67 beats per minute with nonspecific intraventricular conduction delay and occasional PVCs. The patient's INR is pending at the time of dictation. ASSESSMENT AND PLAN: 1. Pneumonia. The patient failed outpatient treatment. He is very weak and his liver function tests are elevated. He is going to be placed on inpatient admission. He is going to be continued with ceftriaxone and due to his amiodarone treatment, azithromycin is not going to be started which was initially used in the emergency department. The patient is going to be instead treated with doxycycline. Urine Strep pneumo and legionella antigens are going to be obtained. Unfortunately, the patient is not producing any sputum for the time being to culture it. 2. Chronic kidney disease stage 3. It is at baseline with creatinine of 1.4. 3. Liver function test elevation is likely due to hypoperfusion and mild dehydration. He is going to be placed on gentle intravenous fluids . 4. For diabetes, the patient is going to place on fingersticks twice a day. I do not believe the patient will need further insulin sliding scale since his dose of metformin is small. I suspect his sugars will be under pretty good control. 5. For hypertension and history of heart disease, his aspirin and carvedilol is going to be continued. Lisinopril will be held. 6. For his paroxysmal atrial fibrillation, the patient is currently in sinus rhythm. We will continue amiodarone and Coumadin at an outpatient dose. We are still awaiting INR to confirm Coumadin dose. 7. For DVT prophylaxis, the patient is going to be continued on Coumadin. 8. The patient's code status is full and his surrogate is his . TIME SPENT: Approximately 67 minutes was spent on admission of this patient, more than half of that time was spent [id number] with the patient during the interview and physical exam. [id number]/[facility] #: [id number] [facility]
[2019-10-04] MEDS: IPRATROPIUM BR (NF)0.03% NASAL 1 SPRAY BTL BOTH NARES SCH (20:08)
[2019-10-05] MEDS: DOXYcycline IV* 100 MG in NS 0.9% 250 ML* 250 ML IVPB SCH (05:51)
[2019-10-05 06:46] LABS: ABS Eosinophils 0.1 10^3/ul (0-0.6); ABS Lymphocytes 0.7 10^3/ul (1.0-4.8); ABS Monocytes 0.6 10^3/ul (0-0.8); ABS Neutrophils 4.7 10^3/ul (1.5-7.7); Eosinophil % 1.1 %; Hematocrit 37 % (42-52); Hemoglobin 12.8 g/dL (14.0-18.0); Lymphocyte % 11.1 %; Mean Corpuscular HGB Conc 34 g/dL (31-36); Mean Corpuscular Hemoglobin 31 pg (27-31); Mean Corpuscular Volume 90 fL (80-94); Mean Platelet Volume 8.8 fL (7.4-10.4); Nucleated Red Blood Cells % 0.1; Platelet Count 168 10^3/uL (150-450); Red Blood Count 4.18 10^6 /uL (4.18-5.48); Red Cell Distribution Width 15 % (10-15); White Blood Count 6.1 10^3/uL (3.5-10.8)
[2019-10-05 06:54] LABS: BUN/Creatinine Ratio 19.2 (8-20); EGFR African American 71.2 (>60); EGFR Non-African American 58.9 (>60); Globulin 2.9 g/dL (2-4); Potassium 3.8 mmol/L (3.5-5.0); Total Bilirubin 0.6 mg/dL (0.2-1.0); Total Protein 5.9 g/dL (6.4-8.9)
[2019-10-05] MEDS: IPRATROPIUM BR (NF)0.03% NASAL 1 SPRAY BTL BOTH NARES SCH ×3 (07:58→19:08)
[2019-10-05] MEDS: Aspirin TAB* 325 MG PO SCH (08:16)
[2019-10-05] MEDS: Carvedilol TAB* 6.25 MG PO SCH ×2 (08:16→16:59)
[2019-10-05] MEDS: Amiodarone TAB* 200 MG PO SCH (08:17)
[2019-10-05] MEDS: guaiFENesin/CODIENE 100mg/10mg 5 ML UDC PO PRN ×2 (08:21→19:36)
[2019-10-05] MEDS ORDERED: Atorvastatin* 20 MG TAB PO SCH ×2 (09:00→21:00)
--- NOTE | 2019-10-05 11:27 | PN ---
Subjective Date of Service: 10/05/19 Interval History: No acute events overnight. Admitted yesterday evening. Pt reports that his cough, SOB, and weakness are better. Daughter at bedside is still concerned about his weakness, stating he fell yesterday before coming in. No fever or leukocytosis. Objective Active Medications: Acetaminophen (Tylenol Tab*) 650 mg PO Q4H PRN PRN Reason: PAIN-MILD/TEMP >/= 100.4 Amiodarone HCl (Cordarone Tab*) 200 mg PO DAILY [facility] Last Admin: 10/05/19 08:17 Dose: 200 mg Aspirin (Aspirin Tab*) 325 mg PO DAILY [facility] Last Admin: 10/05/19 08:16 Dose: 325 mg Atorvastatin Calcium (Lipitor*) 20 mg PO DAILY [facility] Last Admin: 10/05/19 08:17 Dose: Not Given Carvedilol (Coreg Tab*) 12.5 mg PO BID WITH MEALS [facility] Last Admin: 10/05/19 08:16 Dose: 12.5 mg Cyclobenzaprine HCl (Flexeril Tab*) 10 mg PO BEDTIME PRN PRN Reason: SPASMS - MUSCLE Fluticasone Propionate (Flonase Nasal [place] 50mcg*) 2 spray BOTH NARES DAILY PRN PRN Reason: seasonal allergies Guaifenesin/Codeine Phosphate (Robitussin Ac 100mg/10mg In 5 Ml) 5 ml PO Q6H PRN PRN Reason: COUGH Last Admin: 10/05/19 08:21 Dose: 5 ml Doxycycline Hyclate 100 mg/ (Sodium Chloride) 250 mls @ 250 mls/hr IVPB Q12H [facility] Last Admin: 10/05/19 05:51 Dose: 250 mls/hr Ceftriaxone Sodium 1 gm/ (Sodium Chloride) 50 mls @ 100 mls/hr IVPB Q24H [facility] Ipratropium [place] (Ipratropium [place]) 2 spray BOTH NARES TID [facility] Last Admin: 10/05/19 07:58 Dose: Not Given Meclizine HCl (Antivert Tab*) 25 mg PO TID PRN PRN Reason: NAUSEA/VOMITING Polyethylene Glycol/Electrolytes (Miralax*) 17 gm PO DAILY PRN PRN Reason: CONSTIPATION Tramadol HCl (Ultram*) 50 mg PO Q12H PRN PRN Reason: PAIN - MILD Warfarin Sodium (Coumadin Tab(*)) 5 mg PO SUMOWEFRSA [facility]; Protocol Last Admin: 10/04/19 20:02 Dose: 5 mg Warfarin Sodium (Coumadin Tab(*)) 7.5 mg PO [facility]; Protocol Vital Signs - 8 hr 10/05/19 10/05/19 07:21 10:53 Temperature 98.4 F 98.1 F Pulse Rate 75 65 Respiratory 18 18 Rate Blood Pressure 142/74 123/62 (mmHg) O2 Sat by Pulse 95 94 Oximetry Oxygen Devices in Use Now: None Appearance: well appearing, NAD Eyes: No Scleral Icterus Ears/Nose/Mouth/Throat: Clear Oropharnyx, Mucous Membranes Moist Respiratory: Symmetrical Chest Expansion and Respiratory Effort, Clear to Auscultation Cardiovascular: NL Sounds; No Murmurs; No JVD, RRR Abdominal: NL Sounds; No Tenderness; No Distention, No Hepatosplenomegaly Extremities: No Edema Skin: No Rash or Ulcers Neurological: Alert and Oriented x 3 Result Diagrams: 10/05/19 06:27 10/05/19 06:27 Microbiology and Other Data: Microbiology 10/04/19 18:00 Legionella Urinary Antigen - Final Urine Negative Legionella Antigen Streptococcus pneumoniae Ag Screen - Final Negative S. pneumo Antigen Assess/Plan/Problems-Billing Assessment: 74M with CAD s/p CABG, afib on warfarin, HTN, DM2, CKD, presents with nonresolving pneumonia after 3 days on Augmentin. - Patient Problems (1) Pneumonia Comment: Improved significantly after 1 day on IV antibiotics. Urine antigens negative. - cont CTX/doxy (10/04 - ) - f/u BCx - check CRP tomorrow - was over 200 last week (2) Afib Comment: In NSR. - cont amiodarone, beta grazyna, and warfarin (3) CAD (coronary artery disease) Comment: cont home asa and statin (4) DM2 (diabetes mellitus, type 2) Comment: - cont home metformin 500mg BID. (5) HTN (hypertension) Comment: - home lisinopril held in setting of infection (6) DVT prophylaxis Current Visit: No Status: Acute Code(s): HSS3131 - SNOMED Code(s): 698550246 Comment: coumadin
[2019-10-05] MEDS ORDERED: cefTRIAXone(*) 1 GM in NS 0.9% 50 ML* 50 ML IVPB SCH (16:00)
[2019-10-05] MEDS: metFORMIN* 500 MG TAB PO SCH (16:59)
[2019-10-05] MEDS: Warfarin TAB(*) 5 MG PO SCH (17:47)
[2019-10-05] MEDS: DOXYcycline CAP(*) 100 MG PO SCH (19:36)
[2019-10-06 06:30] LABS: INR 3.47 (0.82-1.09)
[2019-10-06 06:48] LABS: Albumin 2.8 g/dL (3.2-5.2); C Reactive Protein 203.24 mg/L (<8.01); Globulin 2.9 g/dL (2-4); Indirect Bilirubin 0.4 mg/dL (0.3-1.0); Total Bilirubin 0.6 mg/dL (0.2-1.0); Total Protein 5.7 g/dL (6.4-8.9)
[2019-10-06 07:52] VITALS: BP 143/68
--- NOTE | 2019-10-06 08:47 | PN ---
Subjective Date of Service: 10/06/19 Interval History: No acute events overnight. CRP is lower than when it was drawn in urgent care last week, however there is no admission CRP for comparison. LFTs are stable, possible that they increased from Augmentin, which can (rarely ) cause hepatitis. His current antibiotics are not known to do that, and his LFTs have not worsened since admission. Walked independently with PT yesterday. Feeling significantly better today except for lingering cough. Discussed this may take weeks to resolve. Objective Active Medications: Acetaminophen (Tylenol Tab*) 650 mg PO Q4H PRN PRN Reason: PAIN-MILD/TEMP >/= 100.4 Amiodarone HCl (Cordarone Tab*) 200 mg PO DAILY [facility] Last Admin: 10/05/19 08:17 Dose: 200 mg Aspirin (Aspirin Tab*) 325 mg PO DAILY [facility] Last Admin: 10/05/19 08:16 Dose: 325 mg Atorvastatin Calcium (Lipitor*) 20 mg PO BEDTIME [facility] Last Admin: 10/05/19 19:36 Dose: 20 mg Carvedilol (Coreg Tab*) 12.5 mg PO BID WITH MEALS [facility] Last Admin: 10/05/19 16:59 Dose: 12.5 mg Cyclobenzaprine HCl (Flexeril Tab*) 10 mg PO BEDTIME PRN PRN Reason: SPASMS - MUSCLE Doxycycline Hyclate (Vibramycin Cap(*)) 100 mg PO BID [facility] Last Admin: 10/05/19 19:36 Dose: 100 mg Fluticasone Propionate (Flonase Nasal [place] 50mcg*) 2 spray BOTH NARES DAILY PRN PRN Reason: seasonal allergies Guaifenesin/Codeine Phosphate (Robitussin Ac 100mg/10mg In 5 Ml) 5 ml PO Q6H PRN PRN Reason: COUGH Last Admin: 10/05/19 19:36 Dose: 5 ml Ceftriaxone Sodium 1 gm/ (Sodium Chloride) 50 mls @ 100 mls/hr IVPB Q24H [facility] Last Admin: 10/05/19 17:02 Dose: 100 mls/hr Ipratropium [place] (Ipratropium [place]) 2 spray BOTH NARES TID [facility] Last Admin: 10/05/19 19:08 Dose: Not Given Meclizine HCl (Antivert Tab*) 25 mg PO TID PRN PRN Reason: NAUSEA/VOMITING Metformin HCl (Glucophage*) 500 mg PO BID WITH MEALS [facility] Last Admin: 10/05/19 16:59 Dose: 500 mg Polyethylene Glycol/Electrolytes (Miralax*) 17 gm PO DAILY PRN PRN Reason: CONSTIPATION Tramadol HCl (Ultram*) 50 mg PO Q12H PRN PRN Reason: PAIN - MILD Warfarin Sodium (Coumadin Tab(*)) 5 mg PO SUMOWEFRSA [facility]; Protocol Last Admin: 10/05/19 17:47 Dose: 5 mg Warfarin Sodium (Coumadin Tab(*)) 7.5 mg PO TUTH [facility]; Protocol Vital Signs - 8 hr 10/06/19 10/06/19 02:43 07:15 Temperature 99 F 99.0 F Pulse Rate 75 75 Respiratory 18 16 Rate Blood Pressure 135/69 143/68 (mmHg) O2 Sat by Pulse 95 92 Oximetry Oxygen Devices in Use Now: None Appearance: well appearing man sitting at edge of bed talking to Eyes: No Scleral Icterus Ears/Nose/Mouth/Throat: Clear Oropharnyx, Mucous Membranes Moist Neck: NL Appearance and Movements; NL JVP, Trachea Midline Respiratory: Symmetrical Chest Expansion and Respiratory Effort, Clear to Auscultation Cardiovascular: RRR Abdominal: NL Sounds; No Tenderness; No Distention, No Hepatosplenomegaly Extremities: No Edema Skin: No Rash or Ulcers Neurological: Alert and Oriented x 3 Result Diagrams: 10/05/19 06:27 10/05/19 06:27 Microbiology and Other Data: Microbiology 10/04/19 18:00 Legionella Urinary Antigen - Final Urine Negative Legionella Antigen Streptococcus pneumoniae Ag Screen - Final Negative S. pneumo Antigen Assess/Plan/Problems-Billing Assessment: 74M with CAD s/p CABG, afib on warfarin, HTN, DM2, CKD, presents with nonresolving pneumonia after 3 days on Augmentin. - Patient Problems (1) Pneumonia Comment: Improved significantly after 1 day on IV antibiotics. Urine antigens negative. - cont CTX/doxy (10/04 -), switch to PO cefdinir/doxy for 5 more days at home - f/u BCx (2) Afib Comment: In NSR. - cont amiodarone, beta grazyna, and warfarin (3) CAD (coronary artery disease) Comment: cont home asa and statin (4) DM2 (diabetes mellitus, type 2) Comment: - cont home metformin 500mg BID. (5) HTN (hypertension) Comment: - restart home lisinopril 2.5mg daily, pt has been on this for years (6) DVT prophylaxis Current Visit: No Status: Acute Code(s): [id number] - SNOMED Code(s): 790446268 Comment: coumadin
[2019-10-06] MEDS: DOXYcycline CAP(*) 100 MG PO SCH (08:52)
[2019-10-06] MEDS: Amiodarone TAB* 200 MG PO SCH (08:53)
[2019-10-06] MEDS: Carvedilol TAB* 6.25 MG PO SCH (08:53)
[2019-10-06] MEDS: Aspirin TAB* 325 MG PO SCH (08:53)
[2019-10-06] MEDS: metFORMIN* 500 MG TAB PO SCH (08:53)
[2019-10-06] MEDS: guaiFENesin/CODIENE 100mg/10mg 5 ML UDC PO PRN (09:00)
[2019-10-06] MEDS: IPRATROPIUM BR (NF)0.03% NASAL 1 SPRAY BTL BOTH NARES SCH (09:54)
[2019-10-06] MEDS ORDERED: Warfarin TAB(*) 7.5 MG PO SCH (17:00)
--- NOTE | 2019-10-06 23:55 | DS ---
CC: Dr. Bryant Borrego* DISCHARGE SUMMARY: DATE OF ADMISSION: 10/04/19 DATE OF DISCHARGE: 10/06/19 PRIMARY CARE PHYSICIAN: Dr. Bryant Borrego. PRIMARY DIAGNOSIS: Non-resolving pneumonia. SECONDARY DIAGNOSES: 1. Coronary artery disease status post coronary artery bypass graft. 2. Hypertension. 3. Diabetes. 4. Chronic kidney disease. 5. Atrial fibrillation, on warfarin. 6. Obesity. DISCHARGE MEDICATIONS: 1. Cefdinir 300 mg twice a day for 5 more days. 2. Doxycycline 100 mg twice a day for 5 more days. 3. Guaifenesin dextromethorphan sugar free 5 mg every 6 hours as needed for cough. 4. Aspirin 325 mg daily. 5. Atorvastatin 20 mg daily. 6. Amiodarone 200 mg daily. 7. Carvedilol 12.5 mg twice a day. 8. Warfarin 5 and 7.5 mg alternating doses. 9. Lisinopril 2.5 mg daily. 10. Metformin 500 mg twice a day. 11. Prednisone 5 mg daily as needed. 12. Tramadol 50 mg twice a day as needed for pain. 13. Fluticasone nasal spray daily as needed for allergies. 14. [place]-3 fatty acids daily. 15. Multivitamin daily. 16. MiraLAX 17 g daily as needed for constipation. HISTORY OF PRESENT ILLNESS: Mr. Falcon is a 74-year-old man with atrial fibrillation on warfarin, coronary artery disease status post bypass, CKD, diabetes type 2 who is presenting with cough and shortness of breath for approximately 1 week. He presented to the ER 3 days prior to this presentation with the same symptoms and he was noted to have a right upper lobe consolidation on chest x-ray. He was placed on Augmentin over the phone for 3 days. His reports that he slept a lot and may have missed some doses of his outpatient Augmentin and subsequently he did continue to experience a cough associated with nighttime chills and subjective fever, so he re-presented to the emergency room for further evaluation. HOSPITAL COURSE: In the emergency room, his chest x-ray showed possibly enlarged consolidation as well as elevation of his liver function test since starting Augmentin. He was admitted to the hospitalist service and placed on IV antibiotics. As he had failed outpatient treatment with Augmentin, he was started on ceftriaxone and doxycycline. By the next morning, the patient reports that he felt significantly better, but his and daughter felt that the patient still appeared quite weak. A physical therapy consult was ordered and the patient was cleared from PT services as he was able to walk independently. Urine antigens were negative for Legionella and Streptococcus pneumoniae. Throughout admission, the patient remained afebrile and without a leukocytosis. By next morning after 48 hours on antibiotics, the patient states that he felt significantly better and stronger although still had a nagging cough. It was explained to him and his that this may persist for several weeks and is normal after pneumonia. It was stressed with the patient and his importance of taking antibiotics as scheduled going forward. They state he has an appointment with his primary care physician on Saturday. Throughout admission, the patient denied nausea, vomiting, anorexia or right upper quadrant pain. It was thought his elevated LFTs could be from Augmentin and they did not worsen on ceftriaxone and doxycycline, but stayed in the mid to upper 100s throughout admission, so the patient was educated to follow this up with his primary care physician as well. PERTINENT STUDIES AND LABS: CBC notable for mild anemia to 12.8 with MCV 90. BMP with creatinine 1.2 on discharge, which seems better than the patient's baseline, AST 152 and ALT 187 on discharge. CRP 203 on discharge, which decreased from 214 in urgent care. INR on discharge 3.4. Chest x-ray with persistent and slightly progressed right upper lung consolidation, recommend follow up until resolution to exclude underlying pulmonary parenchymal pathology. DISCHARGE PLAN: The patient will follow up on Saturday with his primary care physician for ongoing monitoring of his pneumonia and liver function test. He should continue to have INR checks as well for adjustment of his warfarin. The patient and his were educated on importance of taking all antibiotics as prescribed without missing doses. He should also obtain a followup chest x-ray in a month to ensure resolution of right upper lobe findings. The patient was educated to exercise caution with medications on the Beers criteria list, which included his home medications of cyclobenzaprine and meclizine, which can cause the dizziness and weakness that he has been experiencing as an outpatient, he should follow this up with his primary care physician. The patient and his were educated on return precautions, which include but are not limited to fevers, recurrence of chills, or worsening shortness of breath. They were educated that the cough may persist and that this is not a reason to return to the emergency room unless there are new symptoms such as hemoptysis. The patient should get a healthy diet, low in processed foods, carbohydrates and resume activities as tolerated. DISPOSITION: Home. CONDITION: Improved. TIME SPENT: Apparently 60 minutes was spent on discharge of this patient, more than half of which was spent with care, coordination at bedside and for interview and exam. [id number]/[facility] #: [id number] [facility]
== END 2019-10-06 13:10 | disposition home or self-care (01) | DRG 195 ==
LOC: ED 15:04 → MED 17:09
PROVIDERS: ADMIT Internal Medicine; ATTEND Internal Medicine
DX: J18.9 Pneumonia, unspecified organism (principal); I25.10 Atherosclerotic heart disease of native coronary artery without angina pectoris; I12.9 Hypertensive chronic kidney disease with stage 1 through stage 4 chronic kidney disease, or unspecified chronic kidney disease; E11.22 Type 2 diabetes mellitus with diabetic chronic kidney disease; E78.5 Hyperlipidemia, unspecified; N18.3 Chronic kidney disease, stage 3 (moderate); I48.0 Paroxysmal atrial fibrillation; E86.0 Dehydration; R79.89 Other specified abnormal findings of blood chemistry; E78.00 Pure hypercholesterolemia, unspecified; E66.9 Obesity, unspecified; Z79.01 Long term (current) use of anticoagulants; Z68.30 Body mass index [BMI] 30.0-30.9, adult; Z79.82 Long term (current) use of aspirin; Z79.84 Long term (current) use of oral hypoglycemic drugs; Z79.52 Long term (current) use of systemic steroids; Z79.899 Other long term (current) drug therapy; Z95.1 Presence of aortocoronary bypass graft; Z95.0 Presence of cardiac pacemaker; Z87.891 Personal history of nicotine dependence; Z85.828 Personal history of other malignant neoplasm of skin
CPT/HCPCS: 36415; 71046; 80053; 80076; 81003; 81015; 83605; 85025; 85610; 86140; 87040; 87086; 87899; 93005; 96365; 96375; 99284; A9270-GY; G8978-GP-CH; G8979-GP-CH; G8980-GP-CH; J0456; J0696